=== PATIENT | male | born 1955 | race Caucasian/White ===

== ENCOUNTER 2016-06-23 05:32 | Observation (INO) | payer BC ==
--- OUTSIDE RECORDS SUMMARY | 2016-06-23 05:53 | XMS REPORT | Continuity of Care Document ---
:1955 Demographics Phone Unavailable Preferred Language Unknown Marital Status Unknown Sikhism Affiliation Unknown Race Unknown Ethnic Group Unknown Author Organization [facility] ([facility]) [place] [address] Phone [phone] Care Team Providers Name Role Phone Unavailable Primary Care Provider Unavailable Source Comments This disclosure is being made pursuant to the Care Everywhere program, applicable federal and state laws, and may not contain all informaitonavailable regarding this patient.[facility] ([facility]) Active Allergies and Adverse Reactions Not on File Current Medications Not on file Active Problems Not on file Social History Tobacco Use Types Packs/Day Years Used Date Never Assessed Plan of Care Health Maintenance Due Date Last Done Comments HCV Screening 1955 Hepatitis B Vaccine (1 of 3 - Primary Series) 1955 Tdap Vaccine 1965 Lipid Disorder Screening 1972 Td Vaccine 1972 Colonoscopy 03/07/2004 Prostate Cancer Screening 2004 Zoster Vaccine 2014 Influenza Vaccine: Seasonal (#1) 12/12/2015 Results from Last 3 Months Not on file
[2016-06-23 06:00] LABS: Hemoglobin 16.4 gm/dL (13.5-18.0); Mean Corpuscular Hgb Conc 34.2 g/dl (32-36); Neutrophil # 8.2 K/mm3 (1.3-6.0); Platelet Count 133 K/mm3 (150-450); Red Blood Count 5.65 M/mm3 (4.7-6.0); Red Cell Distribution Width 13.2 % (11.5-14.0); White Blood Count 9.6 K/mm3 (4.0-10.5)
--- NOTE | 2016-06-23 06:03 | ERNOTE ---
Medical Problem HPI - General Chief Complaint: Diabetes Related Problem Time Seen by Provider: 06/23/16 05:41 Source: patient, EMS Exam Limitations: no limitations - Immun/Allergies/Home Medications Immunizations: IMMUNIZATION HX Immunizations Up to Date Yes History of Influenza Vaccine Yes Hx Pneumococcal Vaccination No Allergies/Adverse Reactions: Allergies BRYON Inhibitors Allergy (Severe, Verified 06/23/16 06:51) Swelling of Throat pioglitazone HCl [From Actos] Allergy (Severe, Verified 06/23/16 06:51) Swelling of Throat Home Medications: HOME MEDICATIONS Fluoxetine HCl [Prozac] 20 mg PO DAILY 04/05/15 [Last Taken Unknown] Insulin Aspart [Novolog] 6 units SC TIDWM 04/05/15 [Last Taken Unknown] Insulin Glargine,Hum.rec.anlog [Lantus] 80 units SC DAILY 04/05/15 [Last Taken Unknown] Metoprolol Tartrate [Lopressor] 50 mg PO DAILY 04/05/15 [Last Taken Unknown] Nifedipine [Adalat cc] 60 mg PO DAILY 04/05/15 [Last Taken Unknown] Ramipril 10 mg PO DAILY 04/05/15 [Last Taken Unknown] Nitroglycerin [Nitrostat] 0.4 mg SL Q5MIN PRN #10 btl 06/21/15 [Last Taken Unknown] Furosemide [Lasix] 20 mg PO DAILY #30 tablet 03/09/16 [Last Taken Unknown] Aspirin [Aspirin Enteric Coated] 81 mg PO DAILY 06/23/16 [Last Taken Unknown] Atorvastatin Calcium [Lipitor] 80 mg PO DAILY 06/23/16 [Last Taken Unknown] Clopidogrel Bisulfate [Plavix] 75 mg PO DAILY 06/23/16 [Last Taken Unknown] LORazepam [Ativan] 0.5 mg PO TID PRN 06/23/16 [Last Taken Unknown] Multivitamin [One Daily Essential] 1 each PO DAILY 06/23/16 [Last Taken Unknown] - History of Present History Date (Duration): 06/23/16 Time (Timing): 05:54 Timing: gone now Severity: moderate Modifying Factors - (Improves): Present: medication Modifying Factors - (Worsens): Present: cold therapy - patient 61-year-old male on both long-acting and short-acting insulin was called ambulance early this morning due to confusion. At time of arrival initial Accu-Chek 34 which improved to 110 with one amp D50. Patient still confused and the second Was given prior to arrival emergency room. Patient with gradual improvement of mental status especially after second amp D50 given. Patient alert oriented 3 in no apparent distress at time of arrival in emergency room. Interestingly patient's hypothermic by both ear and rectal thermometer readings at time of arrival. He denies any problems with heat in the house or prolonged exposure to the elements last night or early this morning. Patient denies recent use of alcohol or any illicit drugs. Review of Systems - Review of Systems Constitutional: Absent: recent illness, fever, chills EYE: Present: no symptoms reported ENT: Present: no symptoms reported Respiratory: Present: no symptoms reported Cardiology: Present: no symptoms reported Gastrointestinal/Abdominal: Present: no symptoms reported Genitourinary: Present: no symptoms reported Musculoskeletal: Present: no symptoms reported Skin: Present: no symptoms reported Neurological: Present: other - patient with marked confusion at time of EMS arrival. Patient back to baseline at time of arrival in emergency room. Endocrine: Present: no symptoms reported Hematologic/Lymphatic: Present: no symptoms reported Psych: Present: no symptoms reported - Patient's Past Medical History Patient History - Medical: Anxiety, Diabetes Type 2, Kidney stone, Other - patient with previous history of TIAs and CVA with no significant residuals. Patient on both Plavix and baby aspirin currently. Patient denies missing supper but states that he did miss lunch. Patient History - Cardiac/Respiratory: CVA/Stroke, TIA Patient History - Cancer: Prostate Patient History - Surgical Procedures: Colonoscopy, EGD, T & A, Other Patient History - Other: AIDS - Family History Mother Family History - Medical: Other Family History - Cardiac/Respiratory: No pertinent hx Father Family History - Medical: , Diabetes Type 2 Insulin Dependent, Renal Failure, Other Family History - Cardiac/Respiratory: TIA - Social History Living Situations: spouse Abuse History: No History of abuse Psych History: Hx of Depression Smoking Status: Never smoker Have you smoked in the past 12 months: No Do you dip or chew tobacco: Yes Patient requests Smoking Cessation Consult: No Initiate information on Smoking Cessation: No Alcohol Use: occasionally Drug Use: none - Immunizations Immunizations Up to Date: Yes Hx Pneumococcal Vaccination: No History of Influenza Vaccine: Yes Physical Exam - Physical Exam General Appearance: Present: wd/wn, alert, no apparent distress, other - above general appearance at time of arrival in emergency room. Eye Exam: Normal inspection: bilateral, PERRL: bilateral, EOMI: bilateral Ears, Nose, Throat: Present: normal ENT inspection, hearing grossly normal, normal pharynx Neck: Present: normal inspection, nontender Respiratory: Present: no respiratory distress, normal breath sounds, no accessory muscle use, chest nontender Cardiovascular/Chest: Present: regular rate, rhythm, no murmur, normal peripheral pulses Peripheral Pulses: N=norm/S=strong/W=weak/B=bound/A=absent: Carotid (R): Normal , Carotid (L): Normal, Dorsalis-pedis (R): Normal, Dorsalis-pedis (L): Normal Gastrointestinal/Abdominal: Present: normal bowel sounds, nontender, nondistended, soft, no organomegaly Rectal Exam: Present: deferred Back Exam: Present: normal inspection, normal range of motion, no CVA tenderness , no vertebral tenderness Extremity Exam: Present: normal inspection, non-tender, no edema, normal range of motion Neurological Exam: Present: alert, oriented, normal mood/affect, no motor/ sensory deficits, supervising producer II-XII nml as tested DTR: N=norm/NB=norm/brisk/A=abs/DD=dull/dimin/HC=hyperactive: Bicep (R): Normal - all reflexes below 2 over 4 bilaterally, Bicep (L): Normal, Tricep (R): Normal , Tricep (L): Normal, Knee (R): Normal, Knee (L): Normal Skin Exam: Present: normal color, warm/dry, other - skin feels warm and has normal pink hue despite low body core temperature Lymphatic Exam: Present: no adenopathy ED Progress - Date and Time Seen: Date and Time: 06/23/16 06:01 Vital signs show patient hypothermic with temperature below 93F. Body hugger Placed to increase her core temperature. Will perform blood work, CT and EKG to rule out coexisting problems (CVA, intracranial hemorr, nonSTEMI). Patient neurologically stable with Jamir Coma Scale 15 and NIH stroke scale 0. 06/23/16 06:09 Sinus rhythm with 1st degree AV block w TN interval 262, complete LBBB, ant. hemiblock, single PVC, with no visible Herndon waves. Above combination my read and computer read. Labs sent, CT pending, bear hugger in place with additional warm blankets. All and 06/23/16 06:17 Temp increasing gradually as outlined in nurse notes. Will add heated blankets and provide 1 L warmed NS. Patient hemodynamically and neurologically stable. 06/23/16 07:24 Laboratory Results - last 24 hr 06/23/16 06/23/16 06/23/16 05:50 05:50 05:50 WBC 9.6 RBC 5.65 Hgb 16.4 Hct 48.0 MCV 85.0 MCH 29.0 MCHC 34.2 RDW 13.2 Plt Count 133 L MPV 13.0 H Immature Gran % (Auto) 0.20 Immature Gran # (Auto) 0.02 Neutrophils % 85.0 H Lymphocytes % 8.2 L Monocytes % 5.9 Eosinophils % 0.2 Basophils % 0.5 Nucleated RBC % 0.0 Neutrophils # 8.2 H Lymphocytes # 0.8 L Monocytes # 0.6 Eosinophils # 0.0 Absolute Basophils 0.1 pCO2 pO2 HCO3 Total CO2 Base Excess ABG pH ABG O2 Sat (Measured) Sodium 142 Plasma Sodium 144 H Potassium 4.2 Chloride 102 Carbon Dioxide 31.4 Anion Gap 12.8 BUN 20 Creatinine 1.05 Est GFR (Non-Af Amer) 76 D BUN/Creatinine Ratio 19.0 Random Glucose 213 H Lactic Acid, Venous 2.7 H* Calcium 9.3 Calcium Adj for Albumin 8.7 Total Bilirubin 0.6 AST 29 ALT 44 Alkaline Phosphatase 83 Creatine Kinase 254 CK-MB (CK-2) 5.9 CK-MB (CK-2) Rel Index 2.3 Troponin I 0.039 Total Protein 7.4 Albumin 4.3 Urine Color Urine Appearance Urine pH Ur Specific [place] Urine Protein Urine Glucose (UA) Urine Ketones Urine Blood Urine Nitrate Urine Bilirubin Prot Sulfosalicylic Acd Urine Urobilinogen Ur Leukocyte Esterase Urine RBC Urine WBC Ur Epithelial Cells Urine Bacteria Urine Culture Comments 06/23/16 06/23/16 06:00 06:13 WBC RBC Hgb Hct MCV MCH MCHC RDW Plt Count MPV Immature Gran % (Auto) Immature Gran # (Auto) Neutrophils % Lymphocytes % Monocytes % Eosinophils % Basophils % Nucleated RBC % Neutrophils # Lymphocytes # Monocytes # Eosinophils # Absolute Basophils pCO2 40.4 pO2 86.5 HCO3 23.4 Total CO2 24.6 H Base Excess -1.6 ABG pH 7.38 ABG O2 Sat (Measured) 96.4 Sodium Plasma Sodium Potassium Chloride Carbon Dioxide Anion Gap BUN Creatinine Est GFR (Non-Af Amer) BUN/Creatinine Ratio Random Glucose Lactic Acid, Venous Calcium Calcium Adj for Albumin Total Bilirubin AST ALT Alkaline Phosphatase Creatine Kinase CK-MB (CK-2) CK-MB (CK-2) Rel Index Troponin I Total Protein Albumin Urine Color Yellow Urine Appearance Clear Urine pH 6.0 Ur Specific [place] 1.025 Urine Protein 15 H Urine Glucose (UA) >=1000 H Urine Ketones Negative Urine Blood 25 H Urine Nitrate Negative Urine Bilirubin Negative Prot Sulfosalicylic Acd Negative Urine Urobilinogen Normal Ur Leukocyte Esterase Negative Urine RBC 0-5 Urine WBC None seen Ur Epithelial Cells 0-5 Urine Bacteria None seen Urine Culture Comments No culture indicated CT head: old lacunar infarcts in cerebellum. No intracranial hemorrhage noted. Above formal read. Will admit patient for observation for hypoglycemia and hypothermia.. 06/23/16 07:28 In - Results and Orders Patient's Lab Results:: I have reviewed the patient's lab results. - Vital Signs Patient's Vital Signs:: I have reviewed the patient's vital signs. Vital Signs: Vital Signs 06/23/16 05:37 Pulse Rate 87 Respiratory 18 Rate O2 Sat by Pulse 98 Oximetry - Progress/Reassessment Chief Complaint: Diabetes Related Problem Departure - Departure Clinical Impression: Hypoglycemia, Hypothermia Disposition: [facility] Condition: Fair
[2016-06-23] MEDS ORDERED: NORMAL SALINE 1,000 ML IV PRN (06:17)
[2016-06-23 06:19] LABS: Troponin I 0.039 ng/ml (0.00-0.10)
[2016-06-23 06:22] LABS: Urine Bilirubin Negative (NEGATIVE); Urine Blood 25 /ul (NEGATIVE); Urine Ketone Negative (NEGATIVE); Urine Nitrite Negative (NEGATIVE); Urine Protein 15 mg/dL (NEGATIVE); Urine Specific Gravity 1.025 SP.GR. (1.005-1.030); Urine Urobilinogen Normal (NORMAL)
[2016-06-23 06:24] LABS: Albumin * 4.3 gm/dl (3.4-5.0); Anion Gap 12.8 mmol/L (6.8-13.8); Bilirubin, Total 0.6 mg/dL (0.0-1.1); CKMB 5.9 ng/mL (0.0-9.0); Ca. Corrected For Albumin 8.7 mg/dL (8.4-10.2); Calcium * 9.3 mg/dL (7.9-10.9); Carbon Dioxide 31.4 mmol/L (24-32.6); Potassium 4.2 mmol/L (3.4-4.6); Total Protein 7.4 gm/dL (6.2-8.2)
[2016-06-23 06:29] LABS: Urine Appearance Clear; Urine Bacteria None Seen; Urine Color Yellow; Urine RBC 0-5 /hpf (0-5); Urine WBC None Seen /hpf (0-5)
--- OUTSIDE RECORDS SUMMARY | 2016-06-23 07:55 | XMS REPORT | Continuity of Care Document ---
:1955 Demographics Phone Unavailable Preferred Language Unknown Marital Status Unknown Congregational Affiliation Unknown Race Unknown Ethnic Group Unknown Author Organization [facility] ([facility]) [place] [address] Phone [phone] Care Team Providers Name Role Phone Unavailable Primary Care Provider Unavailable Source Comments This disclosure is being made pursuant to the Care Everywhere program, applicable federal and state laws, and may not contain all informaitonavailable regarding this patient.[facility] ([facility]) Active Allergies and Adverse Reactions Not on [...]
[2016-06-23 08:28] VITALS: BP 122/77
--- NOTE | 2016-06-23 14:13 | HP ---
Chief Complaint - Chief Complaint Date of Service: 06/23/16 Time of Service: 12:00 Chief Complaint: Confusion History of Present Illness: Usamn is a 61 yo male that awoke with confusion this AM. EMS was called by his . Sugar first checked at 30 which improved to 100 with D50. He was evaluted in the ER but was found to be persistently hypothermic. He had a head CT which showed no acute changes. Blood sugars remained above 100, but temperature remained below 36C. He reports that he likes to keep his bedroom cold and that he feels normal. Because he takes long and short acting insulin ER requested he be admitted for observation to make sure his temperature improves and his blood sugars do not worsen. - Patient's Past Medical History Patient History - Medical: Anxiety, Diabetes Type 2 Insulin Dependent, Kidney stone Patient History - Cardiac/Respiratory: CVA/Stroke, TIA Patient History - Cancer: Prostate Patient History - Surgical Procedures: Colonoscopy, EGD, T & A, Other Patient History - Other: AIDS - Family History Mother Family History - Medical: Other Family History - Cardiac/Respiratory: No pertinent hx Father Family History - Medical: , Diabetes Type 2 Insulin Dependent, Renal Failure, Other Family History - Cardiac/Respiratory: TIA - Social History Living Situations: spouse Abuse History: No History of abuse Psych History: Hx of Depression Smoking Status: Never smoker Have you smoked in the past 12 months: No Do you dip or chew tobacco: Yes Patient requests Smoking Cessation Consult: No Initiate information on Smoking Cessation: No Alcohol Use: occasionally Drug Use: none - Immunizations Immunizations Up to Date: Yes Hx Pneumococcal Vaccination: No History of Influenza Vaccine: Yes Review Of Systems (GEN) - Review of Systems Generalized/Overall Review: Present: Weakness, Fatigue. Absent: Chills, Fever, Malaise, Diaphoresis EENTM: Present: No Symptoms Reported Respiratory: Present: No Symptoms Reported Cardiac: Present: No Symptoms Reported Abdominal: Present: No Symptoms Reported Genitourinary: Present: No Symptoms Reported Musculoskeletal: Present: No Symptoms Reported Neurological: Present: Other - Confusion which is now resolved Skin: Present: No Symptoms Reported Allergies/Adverse Reactions: Allergies Allergy/AdvReac Type Severity Reaction Status Date / Time BRYON Inhibitors Allergy Severe Swelling Verified 06/23/16 06:51 of Throat pioglitazone HCl [From Actos] Allergy Severe Swelling Verified 06/23/16 06:51 of Throat Home Medications: HOME MEDICATIONS Fluoxetine HCl [Prozac] 20 mg PO DAILY 04/05/15 [Last Taken Unknown] Insulin Aspart [Novolog] 6 units SC TIDWM 04/05/15 [Last Taken Unknown] Insulin Glargine,Hum.rec.anlog [Lantus] 80 units SC DAILY 04/05/15 [Last Taken Unknown] Metoprolol Tartrate [Lopressor] 50 mg PO DAILY 04/05/15 [Last Taken Unknown] Nifedipine [Adalat cc] 60 mg PO DAILY 04/05/15 [Last Taken Unknown] Ramipril 10 mg PO DAILY 04/05/15 [Last Taken Unknown] Nitroglycerin [Nitrostat] 0.4 mg SL Q5MIN PRN #10 btl 06/21/15 [Last Taken Unknown] Furosemide [Lasix] 20 mg PO DAILY #30 tablet 03/09/16 [Last Taken Unknown] Aspirin [Aspirin Enteric Coated] 81 mg PO DAILY 06/23/16 [Last Taken Unknown] Atorvastatin Calcium [Lipitor] 80 mg PO DAILY 06/23/16 [Last Taken Unknown] Clopidogrel Bisulfate [Plavix] 75 mg PO DAILY 06/23/16 [Last Taken Unknown] LORazepam [Ativan] 0.5 mg PO TID PRN 06/23/16 [Last Taken Unknown] Multivitamin [One Daily Essential] 1 each PO DAILY 06/23/16 [Last Taken Unknown] Exam - Exam Vital Signs: Vital Signs - Last Taken Temp 36.6 C 06/23/16 08:22 Pulse 76 06/23/16 08:22 Resp 20 06/23/16 08:22 BP 122/77 06/23/16 08:22 Pulse Ox 100 06/23/16 08:22 Constitutional: Present: Alert, Oriented x3, Cooperative, No distress ENT Exam: Present: hearing grossly normal Eye Exam: bilateral eye: normal inspection Respiratory: Present: chest non-tender, lungs clear, normal breath sounds Cardiovascular/Chest: Present: regular rate, rhythm, no murmur Abdomen: Present: Normal bowel sounds, soft, nontender, nondistended, no rebound tenderness, no hepatospenomegaly Extremity: Present: normal inspection Skin Exam: Present: normal color, warm/dry, no cyanosis Neurologic: Present: country printer II-XII nml as tested, no motor/sensory deficits, alert , normal mood/affect, oriented x 3 Appearance: Present: appropriate appearance, appropriate insight Eye contact: Present: cooperative, good eye contact, normal speech Thoughts: Present: normal thought pattern, no apparent hallucination Diagnostic Studies: Laboratory Results WBC 9.6 K/mm3 (4.0-10.5) 06/23/16 05:50 RBC 5.65 M/mm3 (4.7-6.0) 06/23/16 05:50 Hgb 16.4 gm/dL (13.5-18.0) 06/23/16 05:50 Hct 48.0 % (42.0-52.0) 06/23/16 05:50 MCV 85.0 fl (78-100) 06/23/16 05:50 MCH 29.0 pg (27-31) 06/23/16 05:50 MCHC 34.2 g/dl (32-36) 06/23/16 05:50 RDW 13.2 % (11.5-14.0) 06/23/16 05:50 Plt Count 133 K/mm3 (150-450) L 06/23/16 05:50 MPV 13.0 fl (6.0-9.5) H 06/23/16 05:50 Immature Gran % (Auto) 0.20 % (0.001-0.429) 06/23/16 05:50 Immature Gran # (Auto) 0.02 K/mm3 (0.000-0.0310) 06/23/16 05:50 Neutrophils % 85.0 % (42-75.0) H 06/23/16 05:50 Lymphocytes % 8.2 % (20-51) L 06/23/16 05:50 Monocytes % 5.9 % (0.0-9) 06/23/16 05:50 Eosinophils % 0.2 % (0.0-3.0) 06/23/16 05:50 Basophils % 0.5 % (0.0-1.0) 06/23/16 05:50 Nucleated RBC % 0.0 k/mm3 (0-1) 06/23/16 05:50 Neutrophils # 8.2 K/mm3 (1.3-6.0) H 06/23/16 05:50 Lymphocytes # 0.8 k/mm3 (1.5-3.5) L 06/23/16 05:50 Monocytes # 0.6 k/mm3 (0.0-1.0) 06/23/16 05:50 Eosinophils # 0.0 k/mm3 (0.0-0.7) 06/23/16 05:50 Absolute Basophils 0.1 k/mm3 (0.0-0.1) 06/23/16 05:50 pCO2 40.4 mmHg (35.0-48.0) 06/23/16 06:00 pO2 86.5 mmHg (83.0-108.0) 06/23/16 06:00 HCO3 23.4 mmol/L (21.0-28.0) 06/23/16 06:00 Total CO2 24.6 mmol/L (19.0-24.0) H 06/23/16 06:00 Base Excess -1.6 mmol/L (-2.0-3.0) 06/23/16 06:00 ABG pH 7.38 (7.35-7.45) 06/23/16 06:00 ABG O2 Sat (Measured) 96.4 % (94.0-98.0) 06/23/16 06:00 Sodium 142 mmol/L (132-142) 06/23/16 05:50 Plasma Sodium 144 mmol/L (130-142) H 06/23/16 05:50 Potassium 4.2 mmol/L (3.4-4.6) 06/23/16 05:50 Chloride 102 mmol/L (97-106) 06/23/16 05:50 Carbon Dioxide 31.4 mmol/L (24-32.6) 06/23/16 05:50 Anion Gap 12.8 mmol/L (6.8-13.8) 06/23/16 05:50 BUN 20 mg/dL (6-23) 06/23/16 05:50 Creatinine 1.05 mg/dL (0.4-1.4) 06/23/16 05:50 Est GFR (Non-Af Amer) 76 mL/min (60-130) D 06/23/16 05:50 BUN/Creatinine Ratio 19.0 (9.0-21.6) 06/23/16 05:50 Random Glucose 213 mg/dL (70-110) H 06/23/16 05:50 Lactic Acid, Venous 1.6 mmol/L (0.4-2.0) 06/23/16 09:10 Calcium 9.3 mg/dL (7.9-10.9) 06/23/16 05:50 Calcium Adj for Albumin 8.7 mg/dL (8.4-10.2) 06/23/16 05:50 Total Bilirubin 0.6 mg/dL (0.0-1.1) 06/23/16 05:50 AST 29 U/L (0-48) 06/23/16 05:50 ALT 44 U/L (19-67) 06/23/16 05:50 Alkaline Phosphatase 83 U/L (50-170) 06/23/16 05:50 Creatine Kinase 254 U/L (0-259) 06/23/16 05:50 CK-MB (CK-2) 5.9 ng/mL (0.0-9.0) 06/23/16 05:50 CK-MB (CK-2) Rel Index 2.3 (0.0-3.6) 06/23/16 05:50 Troponin I 0.039 ng/ml (0.00-0.10) 06/23/16 05:50 Total Protein 7.4 gm/dL (6.2-8.2) 06/23/16 05:50 Albumin 4.3 gm/dl (3.4-5.0) 06/23/16 05:50 Urine Color Yellow 06/23/16 06:13 Urine Appearance Clear 06/23/16 06:13 Urine pH 6.0 pH (5.0-7.0) 06/23/16 06:13 Ur Specific [place] 1.025 SP.GR. (1.005-1.030) 06/23/16 06:13 Urine Protein 15 mg/dL (NEGATIVE) H 06/23/16 06:13 Urine Glucose (UA) >=1000 mg/dL (NEGATIVE) H 06/23/16 06:13 Urine Ketones Negative mg/dL (NEGATIVE) 06/23/16 06:13 Urine Blood 25 /ul (NEGATIVE) H 06/23/16 06:13 Urine Nitrate Negative (NEGATIVE) 06/23/16 06:13 Urine Bilirubin Negative mg/dl (NEGATIVE) 06/23/16 06:13 Prot Sulfosalicylic Acd Negative mg/dL (0) 06/23/16 06:13 Urine Urobilinogen Normal EU/dl (NORMAL) 06/23/16 06:13 Ur Leukocyte Esterase Negative /ul (NEGATIVE) 06/23/16 06:13 Urine RBC 0-5 /hpf (0-5) 06/23/16 06:13 Urine WBC None seen /hpf (0-5) 06/23/16 06:13 Ur Epithelial Cells 0-5 /hpf (0-5) 06/23/16 06:13 Urine Bacteria None seen (NONE) 06/23/16 06:13 Urine Culture Comments No culture indicated 06/23/16 06:13 Assessment/Plan - Assessment/Plan (1) Hypoglycemia Assessment: Usman is a 61 yo male that had an episode of confusion this AM due to hypoglycemia of 30. This was corrected with an Amp of D50 and has remained normal since. He is an insulin dependent diabetic and takes both short and long acting insulin. He reports that he keeps the bottles near each other in the fridge and he thinks that it is possible he took his short acting insulin last night instead of his lantus. Will monitor blood sugars through the day, but if remains stable will plan to discharge later this afternoon. Problem: Acute (2) Hypothermia Assessment: Hypothermia in the ER, this has now resolved. He reports keeping his bedroom cold and feels fine now that his blood sugars are back up. Problem: Acute
--- NOTE | 2016-06-23 15:07 | DS ---
(1) Hypoglycemia Diagnosis(s): Usman is a 61 yo male that was admitted for hypoglycemia of 30 with plans to monitor in observation for several hours to make sure these remain stable. It was discovered that he had likely taken his short acting insulin instead of his long acting Lantus at night which caused AM hypoglycemia and confusion. Blood sugars remained normal and temperature returned to normal and remained there. He will be discharged to home with no further problems with his blood sugars. He was educated to silver/label his different insulins so that he cannot confuse them as they are extremely different. Just to be on the safe side we will have him go ahead and decrease his bedtime lantus as well. He may gradually increase up to where he was if his blood sugars are running high. Problem: Resolved (2) Hypothermia Problem: Resolved Procedures Performed: none Discharge Disposition: Home self care Disposition: Home self-care Condition: Good Discharge Activity: Activity as tolerated Discharge Diet: Consistent carbs Referrals: DOC,OUTSIDE [Non Staff Physicians] - One Week Problem Oriented Discharge Instructions to Patient/Family: Hypoglycemia, Easy- to-Read Additional Patient Instructions (free text): Decrease Lantus to 70 units at bedtime for several days to make sure there are no further hypoglycemic episodes, if blood sugars are running high during the day, may gradually increase Lantus to 80 units. Clearly silver Lantus and Novolog bottles so that they do not get mixed up. Complete Home Medications List: Complete Home Medication List: Fluoxetine HCl [Prozac] 20 mg PO DAILY 04/05/15 Insulin Aspart [Novolog] 6 units SC TIDWM 04/05/15 Insulin Glargine,Hum.rec.anlog [Lantus] 80 units SC DAILY 04/05/15 Metoprolol Tartrate [Lopressor] 50 mg PO DAILY 04/05/15 Nifedipine [Adalat cc] 60 mg PO DAILY 04/05/15 Ramipril 10 mg PO DAILY 04/05/15 Nitroglycerin [Nitrostat] 0.4 mg SL Q5MIN PRN #10 btl 06/21/15 Furosemide [Lasix] 20 mg PO DAILY #30 tablet 03/09/16 Aspirin [Aspirin Enteric Coated] 81 mg PO DAILY 06/23/16 Atorvastatin Calcium [Lipitor] 80 mg PO DAILY 06/23/16 Clopidogrel Bisulfate [Plavix] 75 mg PO DAILY 06/23/16 LORazepam [Ativan] 0.5 mg PO TID PRN 06/23/16 Multivitamin [One Daily Essential] 1 each PO DAILY 06/23/16
== END 2016-06-23 16:16 | disposition home or self-care (01) ==
LOC: ER 05:32 → MS 07:46
PROVIDERS: ADMIT Family Medicine; ATTEND Family Medicine
DX: E11.649 Type 2 diabetes mellitus with hypoglycemia without coma (principal); Z79.4 Long term (current) use of insulin; T68.XXXA Hypothermia, initial encounter
CPT/HCPCS: 36415; 36600; 70450; 80053; 81001; 82550; 82553; 82803; 83605; 84484; 85025; 93005; 99284; G0378

== ENCOUNTER 2018-10-31 10:10 | Inpatient (IN) ==
--- NOTE | 2018-10-31 10:36 | ERNOTE ---
Neuro HPI ER Record Presenting Symptoms: confusion Time Seen by Provider: 10/31/18 10:16 Source: patient Exam Limitations: no limitations, clinical condition Immunizations: IMMUNIZATION HX Immunizations Up to Date Yes History of Influenza Vaccine More Information Required Hx Pneumococcal Vaccination More Information Required Allergies/Adverse Reactions: Allergies Allergy/AdvReac Type Severity Reaction Status Date / Time BRYON Inhibitors Allergy Severe Swelling Verified 10/31/18 10:18 of Throat pioglitazone HCl [From Actos] Allergy Severe Swelling Verified 10/31/18 10:18 of Throat Home Medications: HOME MEDICATIONS Atorvastatin Calcium 80 mg PO DAILY 07/02/17 [Last Taken Unknown] Clopidogrel Bisulfate [Plavix] 75 mg PO DAILY 07/02/17 [Last Taken Unknown] Insulin Aspart [Novolog] 6 - 8 units SC AC 07/02/17 [Last Taken Unknown] Insulin Glargine,Hum.rec.anlog [Lantus] 40 units SC HS 07/02/17 [Last Taken Unknown] LORazepam [Ativan] 0.5 mg PO TID PRN 07/02/17 [Last Taken Unknown] Metoprolol Tartrate [Lopressor] 12.5 mg PO BID 07/02/17 [Last Taken Unknown] Multivitamin [One Daily Multivitamin] 1 ea PO DAILY 07/02/17 [Last Taken Unknown] Aspirin [Adult Aspirin] 81 mg PO DAILY 04/06/18 [Last Taken Unknown] FLUoxetine HCL [Fluoxetine HCl] 20 mg PO DAILY 04/06/18 [Last Taken Unknown] Folic Acid 1 mg PO DAILY 04/06/18 [Last Taken Unknown] Nitroglycerin [Nitrostat] 0.4 mg SL Q5MIN PRN 04/06/18 [Last Taken Unknown] - History of Present Illness Narrative: EMS reports that patient [place] stating he might have a TIA or stroke. Patient had slurred speech initially, then seemed to be more clear, on the way to the hospital patient seem to get more confused, was unable to name people or events that he knew. On arrival the the ER patient can't state why he is he, denies any pain He told the EMT that he stopped his HTN medication and blood thinners about two weeks ago Date (Duration): 10/31/18 Time (Timing): 08:45 Review of Systems - Review of Systems Constitutional: Absent: recent illness, fever EYE: Absent: vision changes ENT: Absent: nose congestion, sore throat Respiratory: Absent: shortness of breath Cardiology: Absent: chest pain Gastrointestinal/Abdominal: Absent: nausea, abdominal pain Genitourinary: Present: no symptoms reported Musculoskeletal: Absent: back pain Neurological: Present: See HPI. Absent: headache Medical History (Updated 10/31/18 @ 16:12 by Daily Owen MD) CVA (cerebral vascular accident) Anxiety Onset Date: Unknown CHF (congestive heart failure) Calculus of kidney Onset Date: 1984 around [id number] Cardiomegaly Onset Date: Unknown Combined hyperlipidemia associated with type 2 diabetes mellitus Diabetes Essential familial hyperlipidemia GERD (gastroesophageal reflux disease) Gout Onset Date: 1994 Hernia, inguinal Onset Date: 2008 right direct Hypertension Personal history of colonic polyps Onset Date: Unknown Prostadynia Prostate cancer Removed prostate TIA (transient ischemic attack) Surgical History: Surgical History (Updated 12/26/17 @ 18:15 by Cristal Mohan) History of colonoscopy Onset Date: 06/10/13 with biopsy- [facility]-right colon polyp, lt colon. [place], [place]- tubulovillous adenoma.- 04/23/08, 06/10/13 History of esophagogastroduodenoscopy (EGD) Onset Date: 06/10/13 [place]-mild chronic gastritis, H.pylor negative. History of inguinal hernia repair Onset Date: 12/21/08 tinguely-rt modified bassini and soft mesh History of prostate biopsy Onset Date: 01/06/[address] Swenson History of tonsillectomy and adenoidectomy Hx of tonsillectomy LEFT ARM SURGERY "PINCHED NERVE FIXED" Family History: Family History (Updated 12/26/17 @ 18:04 by Cristal Mohan) Father , 76 Kidney failure Cancer prostate, leukemia Diabetes Diabetic neuropathy Mother Hypoglycemia Hypertension Social History: Preferred Language Croatian Smoking Status Never smoker Abuse History No History of abuse Psych History Hx of Anxiety,Hx of Depression Alcohol Use none Drug Use none (Last Updated 12/26/17 @ 18:02 by Cristal Mohan) No Social History Section defined Physical Exam - Physical Exam General Appearance: Present: wd/wn, alert, no apparent distress Head Exam: Present: normal inspection, no evidence of injury Eye Exam: Normal inspection: bilateral, PERRL: bilateral, EOMI: bilateral Ears, Nose, Throat: Present: normal ENT inspection Neck: Present: normal inspection Respiratory: Present: no respiratory distress, normal breath sounds, no accessory muscle use, chest nontender, lungs clear Cardiovascular/Chest: Present: regular rate, rhythm, no murmur Gastrointestinal/Abdominal: Present: nontender, nondistended, soft Extremity Exam: Present: normal inspection Neurological Exam: Present: alert, no motor/sensory deficits, disoriented to time - knows is saturday, can't name the year, disoriented to place - knows it is a hospital, can't state the town, disoriented to situation. Absent: disoriented to person Skin Exam: Present: normal color, warm/dry Jamir Coma Scale - Assess Eye Opening: Spontaneous Motor: Obeys Commands Verbal: Oriented - Total Coma Scale Total: 15 Initial Stroke Assessment - NIH Stroke Scale Level of Consciousness: Alert LOC Questions (Year and Age): Answers one correctly LOC Commands (open/close eyes/fist): Performs both correctly Lateral Gaze Paresis: None Visual Field Loss: No visual loss Facial Palsy: Normal movement Right Arm Motor (10 sec hold): No drift Left Arm Motor (10 sec hold): No drift Right Leg Motor (5 sec hold): No drift Left Leg Motor (5 sec hold): No drift Limb Ataxia (finger/nose heel/goodman): Absent Sensory Loss (pinprick arms/legs/face): No sensory loss Language Aphasia (description/naming/reading): Mild, yet understandable Dysarthria (speech clarity): Normal articulation Progress - Results and Orders Patient's Lab Results:: I have reviewed the patient's lab results. - Vital Signs Patient's Vital Signs:: I have reviewed the patient's vital signs. Vital Signs: Vital Signs 10/31/18 10:14 10/31/18 10:19 Temperature 36.8 C Pulse Rate 82 79 Respiratory Rate 11 L Blood Pressure 148/97 H O2 Sat by Pulse Oximetry 99 - EKG EKG #1 EKG: NSR - ? , LBBB, other - no change from prior EKG read: Interp. by me - CT/Ultrasound CT/Ultrasound Narrative: CT head: 1. No acute intracranial hemorrhage or mass effect. 2. Additional comments as above. MRI brain: IMPRESSION: 1. 2 small separate areas of potential acute/subacute infarcts in the subcortical white matter of the right insular cortex, and within the right centrum semiovale, likely along the right middle cerebral artery territory. There is no significant edema/mass effect or definite signs of acute hemorrhage within the areas of infarcts. 2. Likely an old infarct in the right cerebellar hemisphere, with T1 linear bright signal as discussed above most likely represents laminar necrosis, but interval development of petechial hemorrhage since head CT from earlier today would be difficult to exclude. Correlate clinically for any interval worsening in symptoms since the head CT from earlier today. Repeat noncontrast head CT could be helpful for added reassurance. 3. Additional comments are as above. - Progress/Reassessment Progress Note-Subjective: 10/31/18 12:50 discussed test results with patient patient is alert, talking fluently and using correct words for the most part but still has difficulty finding some words or expressing his thoughts. 10/31/18 12:55 will try to get MRI 10/31/18 14:[address] Goldberg, patient has small acute/subacute strokes, see report 10/31/18 14:55 updated patient on MRI results, exam unchanged 10/31/18 14:59 call to [facility] 10/31/18 15:16 discussed with stroke team ( Dr Hallman) during prior admission patient had complete work up including echo, MRI,carotid doppler doesn't need acute intervention or transfer to [facility], might benefit from ROMULO, should follow up with neurology as outpatient 10/31/18 15:[address] Hallman,patient didn't had event monitor, might benefit from holter/event montitor 10/31/18 15:55 discussed with tommy Serna to admit patient for acute stroke, restart his prior medications, monitor blood pressure and glucose pre [employer]er [employer] patient meets inpatient criteria Departure Clinical Impression: Diabetes mellitus type 2 in nonobese, Acute alteration in mental status CVA (cerebral vascular accident) Qualifiers: CVA mechanism: unspecified Qualified Code(s): I63.9 - Cerebral infarction, unspecified Hypertension Qualifiers: Hypertension type: unspecified Qualified Code(s): I10 - Essential (primary) hypertension - Departure Disposition: Still a patient Condition: Stable
[2018-10-31 10:38] LABS: Hematocrit 47.7 % (42.0-52.0); Hemoglobin 16.4 gm/dL (13.5-18.0); Mean Cell Volume 86.1 fl (78-100); Mean Corpuscular Hemoglobin 29.6 pg (27-31); Mean Corpuscular Hgb Conc 34.4 g/dl (32-36); Mean Platelet Volume 13.1 fl (8-11.3); Neutrophil # 4.6 K/mm3 (1.3-6.0); Neutrophil % 67.3 % (42-75.0); Platelet Count 104 K/mm3 (150-450); Red Blood Count 5.54 M/mm3 (4.7-6.0); Red Cell Distribution Width 12.8 % (11.5-14.0); White Blood Count 6.8 K/mm3 (4.0-10.5)
[2018-10-31 10:48] LABS: Prothrombin Time (Patient) 10.8 Seconds (9.1-10.7)
[2018-10-31 10:50] LABS: Albumin * 3.7 gm/dl (3.4-5.0); Anion Gap 9.9 mmol/L (6.8-13.8); BUN/Creatinine Ratio 14.8 (9.0-21.6); Bilirubin, Total 1.2 mg/dL (0.0-1.1); Ca. Corrected For Albumin 8.8 mg/dL (8.4-10.2); Calcium * 8.9 mg/dL (7.9-10.9); Potassium 3.9 mmol/L (3.4-4.6); Total Protein 6.6 gm/dL (6.2-8.2)
[2018-10-31 10:51] LABS: INR 1.09 INR (0.92-1.08); Partial Thrombolplastin Time 31.3 Seconds (24-32)
[2018-10-31] MEDS ORDERED: LORazepam 2 MG/ML DISP.SYRIN IV ONE (13:01)
[2018-10-31] MEDS ORDERED: METOPROLOL TARTRATE 25 MG TABLET PO ONE (14:58)
[2018-10-31] MEDS ORDERED: CLOPIDOGREL BISULFATE 75 MG TABLET PO ONE (14:58)
[2018-10-31] MEDS ORDERED: ROSUVASTATIN CALCIUM 20 MG TABLET PO SCH (19:45)
[2018-10-31] MEDS ORDERED: LORazepam 0.5 MG TABLET PO PRN (20:02)
--- NOTE | 2018-10-31 20:08 | HP ---
Chief Complaint - Chief Complaint Date of Service: 10/31/18 Time of Service: 19:33 Chief Complaint: difficulty speaking History of Present Illness: Patient with recent CVA about a month ago developed numbness and difficulty speaking yesterday or today. In the ED, MRI showed two new areas of acute/subacute infarcts in the right insular cortex. He reports not taking his prescribed medications lately. Of note, he is also going through a divorce. He declines other symptoms. He states he used to drink regularly, and stated "you don't want to know" when asked the amount he drank daily. He is unable to say exactly when he stopped drinking, but that it was sometime around a week ago. He uses smokeless tobacco. He has difficulty answering questions on exam, but reports his numbness has resolved. He was unable to tell me where the numbness was. He denies having memory difficulty, but is unable to explain his symptoms. Medical History (Updated 10/31/18 @ 16:58 by Daily Owen MD) CVA (cerebral vascular accident) Hypertension Anxiety Onset Date: Unknown CHF (congestive heart failure) Calculus of kidney Onset Date: 1984 around [id number] Cardiomegaly Onset Date: Unknown Combined hyperlipidemia associated with type 2 diabetes mellitus Diabetes Essential familial hyperlipidemia GERD (gastroesophageal reflux disease) Gout Onset Date: 1994 Hernia, inguinal Onset Date: 2008 right direct Personal history of colonic polyps Onset Date: Unknown Prostadynia Prostate cancer Removed prostate TIA (transient ischemic attack) Surgical History: Surgical History (Updated 12/26/17 @ 18:15 by Cristal Mohan) History of colonoscopy Onset Date: 06/10/13 with biopsy- [place]-right colon polyp, lt colon. '14 [place], [place]- tubulovillous adenoma.- 04/23/08, 06/10/13 History of esophagogastroduodenoscopy (EGD) Onset Date: 06/10/13 [place], [place]-mild chronic gastritis, H.pylor negative. History of inguinal hernia repair Onset Date: 12/21/08 tinguely-rt modified bassini and soft mesh History of prostate biopsy Onset Date: 01/06/[address] Swenson History of tonsillectomy and adenoidectomy Hx of tonsillectomy LEFT ARM SURGERY "PINCHED NERVE FIXED" Family History: Family History (Updated 12/26/17 @ 18:04 by Cristal Mohan) Father , 76 Kidney failure Cancer prostate, leukemia Diabetes Diabetic neuropathy Mother Hypoglycemia Hypertension Social History: Patient Lives/Resources With Spouse Utilized Preferred Language Mauritanian Do you have any adventist or No cultural preference? Smoking Status Never smoker Have you smoked in the past 12 No months Do you dip or chew tobacco No Abuse History No History of abuse Psych History Hx of Anxiety,Hx of Depression Alcohol Use none Drug Use none (Last Updated 12/26/17 @ 18:02 by Cristal Mohan) No Social History Section defined Review Of Systems (GEN) - Review of Systems Generalized/Overall Review: Absent: Fever EENTM: Present: No Symptoms Reported Respiratory: Absent: Cough, Shortness of Breath Cardiac: Absent: Chest Pain, Edema Abdominal: Absent: Nausea Genitourinary: Present: No Symptoms Reported Musculoskeletal: Present: No Symptoms Reported Neurological: Present: Numbness, Other - difficulty speaking Immunizations: IMMUNIZATION HX Immunizations Up to Date Yes History of Influenza Vaccine More Information Required Hx Pneumococcal Vaccination More Information Required Allergies/Adverse Reactions: Allergies Allergy/AdvReac Type Severity Reaction Status Date / Time BRYON Inhibitors Allergy Severe Swelling Verified 10/31/18 17:19 of Throat pioglitazone HCl [From Actos] Allergy Severe Swelling Verified 10/31/18 17:19 of Throat Home Medications: HOME MEDICATIONS Atorvastatin Calcium 80 mg PO DAILY 07/02/17 [Last Taken Unknown] Clopidogrel Bisulfate [Plavix] 75 mg PO DAILY 07/02/17 [Last Taken Unknown] Insulin Aspart [Novolog] 6 - 8 units SC AC 07/02/17 [Last Taken Unknown] Insulin Glargine,Hum.rec.anlog [Lantus] 40 units SC HS 07/02/17 [Last Taken Unknown] LORazepam [Ativan] 0.5 mg PO TID PRN 07/02/17 [Last Taken Unknown] Metoprolol Tartrate [Lopressor] 12.5 mg PO BID 07/02/17 [Last Taken Unknown] Multivitamin [One Daily Multivitamin] 1 ea PO DAILY 07/02/17 [Last Taken Unknown] Aspirin [Adult Aspirin] 81 mg PO DAILY 04/06/18 [Last Taken Unknown] FLUoxetine HCL [Fluoxetine HCl] 20 mg PO DAILY 04/06/18 [Last Taken Unknown] Folic Acid 1 mg PO DAILY 04/06/18 [Last Taken Unknown] Nitroglycerin [Nitrostat] 0.4 mg SL Q5MIN PRN 04/06/18 [Last Taken Unknown] Exam - Exam Vital Signs: Vital Signs - Last Taken Temp 36.5 C 10/31/18 16:40 Pulse 116 H 10/31/18 17:45 Resp 12 10/31/18 17:45 BP 151/89 H 10/31/18 17:45 Pulse Ox 99 10/31/18 16:40 Constitutional: Present: Alert, Oriented x3, Cooperative, Well developed, Well nourished, No distress Eye Exam: bilateral eye: EOMI Neck: Present: supple Respiratory: Present: chest non-tender, normal breath sounds Cardiovascular/Chest: Present: regular rate, rhythm Abdomen: Present: Normal bowel sounds, soft, nontender Extremity: Absent: lower extremity edema Neurologic: Present: other - 5/5 strength of elbow flexion, extension. Able to ambulate to the bathroom. Says "um" frequently, and does not answer several questions. Absent: facial droop Diagnostic Studies: Abnormal Lab Results 10/31/18 10/31/18 10/31/18 Range/Units 10:30 10:30 10:30 Plt Count 104 L (150-450) K/mm3 MPV 13.1 H (8-11.3) fl Lymphocytes # 1.49 L (1.5-3.5) k/mm3 PT 10.8 H (9.1-10.7) Seconds INR (Anticoag Therapy) 1.09 H (0.92-1.08) INR Plasma Sodium 143 H (130-142) mmol/L Random Glucose 334 H (70-110) mg/dL Total Bilirubin 1.2 H (0.0-1.1) mg/dL Laboratory Results WBC 6.8 K/mm3 (4.0-10.5) 10/31/18 10:30 RBC 5.54 M/mm3 (4.7-6.0) 10/31/18 10:30 Hgb 16.4 gm/dL (13.5-18.0) 10/31/18 10:30 Hct 47.7 % (42.0-52.0) 10/31/18 10:30 MCV 86.1 fl (78-100) 10/31/18 10:30 MCH 29.6 pg (27-31) 10/31/18 10:30 MCHC 34.4 g/dl (32-36) 10/31/18 10:30 RDW 12.8 % (11.5-14.0) 10/31/18 10:30 Plt Count 104 K/mm3 (150-450) L 10/31/18 10:30 MPV 13.1 fl (8-11.3) H 10/31/18 10:30 Immature Gran % (Auto) 0.30 % (0.001-0.429) 10/31/18 10:30 Immature Gran # (Auto) 0.02 K/mm3 (0.000-0.0310) 10/31/18 10:30 67.3 % (42-75.0) 10/31/18 10:30 22.0 % (20-51) 10/31/18 10:30 7.5 % (0.0-9) 10/31/18 10:30 2.2 % (0.0-3.0) 10/31/18 10:30 0.7 % (0.0-1.0) 10/31/18 10:30 Nucleated RBC % 0.0 k/mm3 (0-1) 10/31/18 10:30 4.6 K/mm3 (1.3-6.0) 10/31/18 10:30 1.49 k/mm3 (1.5-3.5) L 10/31/18 10:30 0.5 k/mm3 (0.0-1.0) 10/31/18 10:30 0.2 k/mm3 (0.0-0.7) 10/31/18 10:30 Absolute Basophils 0.1 k/mm3 (0.0-0.1) 10/31/18 10:30 ESR 10 mm/hr (0-10) 10/31/18 10:30 PT 10.8 Seconds (9.1-10.7) H 10/31/18 10:30 INR (Anticoag Therapy) 1.09 INR (0.92-1.08) H 10/31/18 10:30 PTT ([place]) 31.3 Seconds (24-32) D 10/31/18 10:30 Sodium 139 mmol/L (132-142) 10/31/18 10:30 143 mmol/L (130-142) H 10/31/18 10:30 Potassium 3.9 mmol/L (3.4-4.6) 10/31/18 10:30 Chloride 101 mmol/L (97-106) 10/31/18 10:30 Carbon Dioxide 32.0 mmol/L (24-32.6) 10/31/18 10:30 9.9 mmol/L (6.8-13.8) 10/31/18 10:30 BUN 17 mg/dL (6-23) 10/31/18 10:30 1.15 mg/dL (0.4-1.4) 10/31/18 10:30 Est GFR (Non-Af Amer) 68 mL/min (60-130) 10/31/18 10:30 14.8 (9.0-21.6) 10/31/18 10:30 334 mg/dL (70-110) H 10/31/18 10:30 Calcium 8.9 mg/dL (7.9-10.9) 10/31/18 10:30 Calcium Adj for Albumin 8.8 mg/dL (8.4-10.2) 10/31/18 10:30 1.2 mg/dL (0.0-1.1) H 10/31/18 10:30 AST 21 U/L (0-48) 10/31/18 10:30 ALT 32 U/L (19-67) 10/31/18 10:30 92 U/L (50-170) 10/31/18 10:30 6.6 gm/dL (6.2-8.2) 10/31/18 10:30 3.7 gm/dl (3.4-5.0) 10/31/18 10:30 Assessment/Plan - Assessment/Plan (1) CVA (cerebral vascular accident) Assessment: MRI reads: "2 small separate areas of potential acute/subacute infarcts in the subcortical white matter of the right insular cortex, and within the right centrum semiovale." Patient reports improvement in some of his symptoms, but is not able to articulate his symptoms fully. HIs numbness has resolved. Resume home meds and PT/OT, and follow up with neurology after DC. Problem: Acute (2) Alcohol abuse Assessment: He also reports recently stopping drinking significant amounts of alcohol. He did not report the amount of alcohol, however. Will monitor CIWA scores. He is prescribed 0.5 mg ativan tid at baseline. If he starts displaying signs of alcohol withdrawal, will increase that dose. Problem: Acute (3) Hypertension Assessment: The only home med that may be for blood pressure is metoprolol. Will allow permissive hypertension for the first 24 hours since he had a recent cerebrovascular infarct, and hold metoprolol. Problem: Chronic (4) GERD (gastroesophageal reflux disease) Problem: Suspected (5) Diabetes mellitus type 2 in nonobese Assessment: Continue home insulin - 40 U glargine and low dose SSI. Problem: Chronic (6) CHF (NYHA class I, ACC/AHA stage B) Assessment: He is not displaying signs of fluid overload currently, and denies symptoms. Problem: Acute (7) Anxiety disorder Problem: Chronic
[2018-10-31] MEDS ORDERED: INSULIN GLARGINE,HUM.REC.ANLOG 100 UNITS/ML VIAL SC SCH (21:00)
[2018-10-31] MEDS ORDERED: METOPROLOL TARTRATE 50 MG TABLET PO SCH (21:00)
[2018-10-31] MEDS ORDERED: ROSUVASTATIN CALCIUM 10 MG TABLET ONE (22:06)
[2018-11-01] MEDS: INSULIN ASPART 100 UNITS/ML VIAL SC SCH ×2 (07:27→11:18)
[2018-11-01] MEDS ORDERED: CLOPIDOGREL BISULFATE 75 MG TABLET PO SCH (09:00)
[2018-11-01] MEDS ORDERED: FOLIC ACID 1 MG TABLET PO SCH (09:00)
[2018-11-01] MEDS ORDERED: FLUoxetine HCL 20 MG CAPSULE PO SCH (09:00)
[2018-11-01] MEDS ORDERED: ASPIRIN 81 MG TABLET.DR PO SCH (09:00)
[2018-11-01] MEDS ORDERED: METOPROLOL TARTRATE 25 MG TABLET PO SCH (09:00)
--- NOTE | 2018-11-01 11:47 | DS ---
(1) CVA (cerebral vascular accident) Problem: Acute (2) Alcohol abuse Problem: Acute (3) Hypertension Problem: Chronic (4) GERD (gastroesophageal reflux disease) Problem: Suspected (5) Diabetes mellitus type 2 in nonobese Problem: Chronic (6) CHF (NYHA class I, ACC/AHA stage B) Problem: Acute (7) Anxiety disorder Problem: Chronic Description of Stay: Patient with recent CVA about a month ago developed numbness and difficulty speaking yesterday or today. In the ED, MRI showed two new areas of acute/subacute infarcts in the right insular cortex. He reports not taking his prescribed medications for several months. Of note, he is also going through a divorce. He declines other symptoms. He states he used to drink regularly, and stated "you don't want to know" when asked the amount he drank daily. He is unable to say exactly when he stopped drinking, but that it was sometime around a week ago. He uses smokeless tobacco. He has difficulty answering questions on exam, but reports his numbness has resolved. He was unable to tell me where the numbness was. The day after admission, he reported feeling "a lot" better. He was evaluated by PT, who recommends he use a cane at home, and he states he will pick one up on the way home. He did not have elevated CIWA scores. He was able to converse more easily on the day of DC. He reports having an appointment with his PCP in two days to get a new neurology referral. He'd prefer not to go to neurology at the [facility]. He also states he had a previous appt at the [facility] for what he describes as a heart cath. Recommend getting this rescheduled. He denies cardiac symptoms currently. Procedures Performed: none Results and Findings: Lab Pending Results 10/31/18 10:30: WBC 6.8, RBC 5.54, Hgb 16.4, Hct 47.7, MCV 86.1, MCH 29.6, MCHC 34.4, RDW 12.8, Plt Count 104 L, MPV 13.1 H, Immature Gran % (Auto) 0.30, Immature Gran # (Auto) 0.02, Neutrophils % 67.3, Lymphocytes % 22.0, Monocytes % 7.5, Eosinophils % 2.2, Basophils % 0.7, Nucleated RBC % 0.0, Neutrophils # 4.6, Lymphocytes # 1.49 L, Monocytes # 0.5, Eosinophils # 0.2, Absolute Basophils 0.1 10/31/18 10:30: ESR 10 10/31/18 10:30: PT 10.8 H, INR (Anticoag Therapy) 1.09 H, PTT ([place]) 31.3 D 10/31/18 10:30: Sodium 139, Plasma Sodium 143 H, Potassium 3.9, Chloride 101, Carbon Dioxide 32.0, Anion Gap 9.9, BUN 17, Creatinine 1.15, Est GFR (Non-Af Amer) 68, BUN/Creatinine Ratio 14.8, Random Glucose 334 H, Calcium 8.9, Calcium Adj for Albumin 8.8, Total Bilirubin 1.2 H, AST 21, ALT 32, Alkaline Phosphatase 92, Total Protein 6.6, Albumin 3.7 Discharge Location: Home Disposition: Home self-care Condition: Stable Discharge Activity: Activity as tolerated Discharge Diet: Consistent carbs Usp Therapy: Physicial Therapy Complete Home Medications List: Complete Home Medication List: Atorvastatin Calcium 80 mg PO DAILY 07/02/17 Clopidogrel Bisulfate [Plavix] 75 mg PO DAILY 07/02/17 Insulin Aspart [Novolog] 6 units SC AC 07/02/17 Insulin Glargine,Hum.rec.anlog [Lantus] 50 units SC QA 07/02/17 LORazepam [Ativan] 0.5 mg PO TID PRN 07/02/17 FLUoxetine HCL [Fluoxetine HCl] 20 mg PO DAILY 04/06/18 Folic Acid 1 mg PO DAILY 04/06/18 Nitroglycerin [Nitrostat] 0.4 mg SL Q5MIN PRN 04/06/18 Aspirin [Aspirin Enteric Coated] 81 mg PO DAILY tablet. 11/01/18 Furosemide 20 mg PO DAILY 11/01/18 Gabapentin 100 mg PO DAILY 11/01/18 Metoprolol Tartrate [Lopressor] 12.5 mg PO BID tablet 11/01/18 Metoprolol Tartrate [Lopressor] 25 mg PO BID 11/01/18 Potassium Chloride [Potassium Chloride 40 meq/15ml Liquid] 8 ml PO DAILY 11/01/18 Thiamine HCl [Vitamin B-1] 100 mg PO DAILY 11/01/18 clonazePAM [Klonopin] 1 mg PO HS 11/01/18
[2018-11-01 14:31] VITALS: BP 150/90
[2018-11-01] MEDS ORDERED: ROSUVASTATIN CALCIUM 20 MG TABLET PO SCH (21:00)
== END 2018-11-01 15:15 | disposition home or self-care (01) | DRG 66 ==
LOC: ER 10:10 → MS 16:10
PROVIDERS: ADMIT Family Medicine; ATTEND Family Medicine
CPT/HCPCS: 36415; 70450; 70551; 71010; 71045; 80053; 85025; 85610; 85652; 85730; 93005; 96374; 97162; 99285

== ENCOUNTER 2019-03-25 10:47 | Inpatient (IN) ==
[2019-03-25] MEDS ORDERED: INSULIN LISPRO 100 UNITS/ML VIAL SC ONE (11:20)
--- NOTE | 2019-03-25 11:27 | ERNOTE ---
Medical Problem HPI - Narrative Date of Service: 03/25/19 - General Chief Complaint: General Assessment Time Seen by Provider: 03/25/19 10:52 Source: patient Exam Limitations: no limitations - Immun/Allergies/Home Medications Immunizations: IMMUNIZATION HX Immunizations Up to Date Yes History of Influenza Vaccine Yes Hx Pneumococcal Vaccination More Information Required Allergies/Adverse Reactions: Allergies BRYON Inhibitors Allergy (Severe, Verified 03/25/19 15:50) Swelling of Throat pioglitazone HCl [From Actos] Allergy (Severe, Verified 03/25/19 15:50) Swelling of Throat Home Medications: HOME MEDICATIONS Atorvastatin Calcium 80 mg PO DAILY 07/02/17 [Last Taken Unknown] Clopidogrel Bisulfate [Plavix] 75 mg PO DAILY 07/02/17 [Last Taken Unknown] Insulin Aspart [Novolog] 6 units SC AC 07/02/17 [Last Taken Unknown] Insulin Glargine,Hum.rec.anlog [Lantus] 50 units SC QAM 07/02/17 [Last Taken Unknown] LORazepam [Ativan] 0.5 mg PO TID PRN 07/02/17 [Last Taken Unknown] FLUoxetine HCL [Fluoxetine HCl] 20 mg PO DAILY 04/06/18 [Last Taken Unknown] Folic Acid 1 mg PO DAILY 04/06/18 [Last Taken Unknown] Nitroglycerin [Nitrostat] 0.4 mg SL Q5MIN PRN 04/06/18 [Last Taken Unknown] Aspirin [Aspirin Enteric Coated] 81 mg PO DAILY tablet. 11/01/18 [Last Taken Unknown] Furosemide 20 mg PO DAILY 11/01/18 [Last Taken Unknown] Gabapentin 100 mg PO DAILY 11/01/18 [Last Taken Unknown] Metoprolol Tartrate [Lopressor] 25 mg PO BID 11/01/18 [Last Taken Unknown] Potassium Chloride [Potassium Chloride 40 meq/15ml Liquid] 8 ml PO DAILY 11/01/18 [Last Taken Unknown] Thiamine HCl [Vitamin B-1] 100 mg PO DAILY 11/01/18 [Last Taken Unknown] clonazePAM [Klonopin] 1 mg PO HS 11/01/18 [Last Taken Unknown] Apixaban [Eliquis] 5 mg PO DAILY 03/25/19 [Last Taken Unknown] - History of Present History Narrative: This patient is a 64-year-old male who arrived by ambulance with TIA versus CVA. He said that about an hour ago while watching TV, he lost control of his right arm. He also had some trouble speaking and trouble with his memory. He said the symptoms lasted for 20 minutes and now he is back to normal. He reports having a history of TIAs and strokes. He said that in October 2018, he spent 4 weeks at the [facility], 4 weeks and [place], and then 4 weeks at a skilled nursing. He indicates that he had a bur hole placed in his head. He was started on Eliquis 1 or 2 months ago because of a stroke and atrial fibrillation. He normally sees a doctor in [place]. He does not know his medications. His symptoms have resolved at this time. Review of Systems - Review of Systems Constitutional: Absent: fever EYE: Absent: blurred vision, double vision ENT: Absent: ear pain, nose congestion, nasal drainage, sore throat Respiratory: Absent: shortness of breath, cough Cardiology: Absent: chest pain, palpitations, syncope Gastrointestinal/Abdominal: Absent: nausea, vomiting, diarrhea, constipation, abdominal pain Genitourinary: Absent: frequency, pain, dysuria, hematuria Musculoskeletal: Absent: back pain, joint pain Skin: Absent: rash Neurological: Present: no symptoms reported. Absent: anxiety, depressed, headache Endocrine: Present: other - He is diabetic. He has not taken his insulin today. Hematologic/Lymphatic: Present: other - No other bleeding at this time. Psych: Absent: anxiety, depressed Medical History (Last Reviewed 03/25/19 @ 11:25 by Dion Adams MD) Anxiety Onset Date: Unknown CHF (congestive heart failure) CVA (cerebral vascular accident) Calculus of kidney Onset Date: 1984 around [id number] Cardiomegaly Onset Date: Unknown Combined hyperlipidemia associated with type 2 diabetes mellitus Diabetes Essential familial hyperlipidemia GERD (gastroesophageal reflux disease) Gout Onset Date: 1994 Hernia, inguinal Onset Date: 2008 right direct Hypertension Personal history of colonic polyps Onset Date: Unknown Prostadynia Prostate cancer Removed prostate TIA (transient ischemic attack) Surgical History: Surgical History (Last Reviewed 03/25/19 @ 11:25 by Dion Adams MD) History of colonoscopy Onset Date: 06/10/13 with biopsy- '[place]-right colon polyp, lt colon. '14 [place], [place]- tubulovillous adenoma.- 04/23/08, 1/29/14 History of esophagogastroduodenoscopy (EGD) Onset Date: 06/10/13 [place]-mild chronic gastritis, H.pylor negative. History of inguinal hernia repair Onset Date: 12/21/08 tinguely-rt modified bassini and soft mesh History of prostate biopsy Onset Date: 01/06/[address] Swenson History of tonsillectomy and adenoidectomy Hx of tonsillectomy LEFT ARM SURGERY "PINCHED NERVE FIXED" Family History: Family History (Last Reviewed 03/25/19 @ 15:50 by Aileen Khan, DANDY) Father , 76 Kidney failure Cancer prostate, leukemia Diabetes Diabetic neuropathy Mother Hypoglycemia Hypertension Social History: (Last Reviewed 03/25/19 @ 15:50 by Aileen Khan RN) Social History: Marital status: household members: spouse current occupational status: retired Service: No Tobacco: Smoking Status: Smoker, status unknown Smokeless tobacco user: chewing tobacco Alcohol: alcohol intake: former Alcohol type: beer alcohol intake frequency: 0-2 drinks per day Substance Use: substance use type: does not use Dietary Habits: caffeine: Yes Type: carbonated beverages Physical Exam - Physical Exam General Appearance: Present: wd/wn, alert, no apparent distress Head Exam: Present: normal inspection, no evidence of injury Eye Exam: Normal inspection: bilateral Ears, Nose, Throat: Present: normal ENT inspection, normal pharynx Neck: Present: normal inspection, supple, other - No carotid bruits.. Absent: lymphadenopathy (R), lymphadenopathy (L) Respiratory: Present: no respiratory distress, normal breath sounds, lungs clear Cardiovascular/Chest: Present: regular rate, rhythm, no murmur Gastrointestinal/Abdominal: Present: normal bowel sounds, nontender, nondistended, soft, no organomegaly Extremity Exam: Present: normal inspection, non-tender, normal range of motion Neurological Exam: Present: alert, oriented, normal mood/affect, no motor/sensory deficits, other - He has no drift of the upper or lower extremities. Sensation is intact to light touch. Skin Exam: Present: normal color, warm/dry Progress - Date and Time Seen: Date and Time: 03/25/19 12:57 [facility] Consult contacted. 03/25/19 14:17 I spoke with the patient's neurologist at [facility]. He says that she needs further work-up with an MRI. I am not able to order an MRI today. I spoke with Dr. Roldan, who agrees to admit the patient. - Results and Orders Patient's Lab Results:: I have reviewed the patient's lab results. Results and Orders: Laboratory Tests 03/25/19 03/25/19 03/25/19 11:27 11:27 11:27 WBC 6.0 RBC 5.36 Hgb 16.2 Hct 46.2 MCV 86.2 MCH 30.2 MCHC 35.1 RDW 12.7 Plt Count 112 L MPV 13.7 H Immature Gran % (Auto) 0.30 Immature Gran # (Auto) 0.02 Neutrophils % 64.5 Lymphocytes % 24.2 Monocytes % 8.0 Eosinophils % 2.2 Basophils % 0.8 Nucleated RBC % 0.0 Neutrophils # 3.9 Lymphocytes # 1.45 L Monocytes # 0.5 Eosinophils # 0.1 Absolute Basophils 0.1 PT 10.8 H INR (Anticoag Therapy) 1.09 H Sodium 136 Plasma Sodium 141 Potassium 3.7 Chloride 98 Carbon Dioxide 33.2 H Anion Gap 8.5 BUN 16 Creatinine 1.04 Est GFR (Non-Af Amer) 76 D BUN/Creatinine Ratio 15.4 Random Glucose 387 H Calcium 8.8 Calcium Adj for Albumin 8.6 Total Bilirubin 0.9 AST 16 ALT 21 Alkaline Phosphatase 93 Total Protein 6.6 Albumin 3.8 - Vital Signs Patient's Vital Signs:: I have reviewed the patient's vital signs. Vital Signs: Vital Signs 03/25/19 10:53 Temperature 37 C Pulse Rate 81 Respiratory Rate 12 Blood Pressure 148/93 H O2 Sat by Pulse Oximetry 98 - EKG EKG #1 EKG read: Interp. by me EKG Comments: Atrial fibrillation. Rate 74 Left axis deviation Left bundle branch block No acute appearing ST or T wave changes. No old to compare. - CT/Ultrasound CT/Ultrasound Narrative: NENHANCED CT SCAN OF THE BRAIN Comparison: 11/01/2018 Technique: Multiple axial images were obtained through the brain without the use of IV contrast. Individualized dose optimization technique was used for the performed procedure including automated exposure control, adjustment of the mA and/or kV according to patient size and/or the iterative reconstruction technique. Findings: The lateral ventricles and sulci are symmetric and within normal limi ts for the patient's age. I do not see evidence for acute blood, extra-axial collection, or mass effect. There is a small chronic lacunar infarct within the lateral right basal ganglia, unchanged. I do not see evidence for chronic cortical or definable acute cortical infarct. The 3rd and 4th ventricles are midline and are of normal size. There is some streak artifact in the posterior fossa, but the cerebellum and visualized almas appear normal. The frontal, ethmoid, sphenoid, and visualized maxillary sinuses are clear.. The mastoid air cells and middle ears appear to be normally aerated. Bone windows demonstrate no evidence for fracture. I do not see evidence for significant soft tissue swelling overlying the calvarium. There is a celso hole within the right frontal bone, which is new compared to the previous study. IMPRESSION: 1. NO ACUTE INTRACRANIAL PROCESS. 2. CELSO HOLE WITHIN THE RIGHT FRONTAL BONE, WHICH APPEARS NEW WHEN COMPARED TO THE PREVIOUS STUDY. Electronically signed by Dimitris Gonzalez M.D.. - Progress/Reassessment Chief Complaint: General Assessment Departure Clinical Impression: TIA (transient ischemic attack), Diabetes mellitus type 2 in nonobese, A-fib, Wernicke encephalopathy - Departure Disposition: Still a patient Condition: Stable
[2019-03-25 11:29] LABS: Hematocrit 46.2 % (42.0-52.0); Hemoglobin 16.2 gm/dL (13.5-18.0); Mean Cell Volume 86.2 fl (78-100); Mean Corpuscular Hemoglobin 30.2 pg (27-31); Mean Corpuscular Hgb Conc 35.1 g/dl (32-36); Mean Platelet Volume 13.7 fl (8-11.3); Neutrophil # 3.9 K/mm3 (1.3-6.0); Neutrophil % 64.5 % (42-75.0); Platelet Count 112 K/mm3 (150-450); Red Blood Count 5.36 M/mm3 (4.7-6.0); Red Cell Distribution Width 12.7 % (11.5-14.0)
[2019-03-25] MEDS ORDERED: NON-FORMULARY 1 DOSE DOSE SC SCH (11:30)
[2019-03-25] MEDS ORDERED: INSULIN GLARGINE,HUM.REC.ANLOG 100 UNITS/ML VIAL SC ONE (11:45)
[2019-03-25 11:47] LABS: Prothrombin Time (Patient) 10.8 Seconds (9.1-10.7)
[2019-03-25 11:50] LABS: INR 1.09 INR (0.92-1.08)
[2019-03-25 11:52] LABS: Albumin * 3.8 gm/dl (3.4-5.0); Anion Gap 8.5 mmol/L (6.8-13.8); BUN/Creatinine Ratio 15.4 (9.0-21.6); Bilirubin, Total 0.9 mg/dL (0.0-1.1); Ca. Corrected For Albumin 8.6 mg/dL (8.4-10.2); Calcium * 8.8 mg/dL (7.9-10.9); Carbon Dioxide 33.2 mmol/L (24-32.6); Potassium 3.7 mmol/L (3.4-4.6); Total Protein 6.6 gm/dL (6.2-8.2)
[2019-03-25] MEDS ORDERED: MIDAZOLAM HCL/PF 5 MG/ML VIAL IV ONE (14:36)
--- NOTE | 2019-03-25 17:40 | HP ---
Chief Complaint - Chief Complaint Date of Service: 03/25/19 Time of Service: 17:12 Chief Complaint: TIA versus CVA History of Present Illness: 64-year-old male past medical history of alcohol abuse, Wernicke's encephalopathy, insulin-dependent diabetes mellitus type 2 and ischemic strokes in September and October 2018, presents to [facility] ER with concerns of TIA versus CVA at 11 AM. Last ischemic strokes were treated at [facility]. On his admission at [facility], NIHSS was 6. Patient did not receive TPA or mechanical thrombectomy. Extensive work-up was complete, which was largely unremarkable. During his hospitalization, it was discovered patient had Atrial fibrillation and started on Eliquis 5mg PO QD and Aspirin 81 mg PO QD and Keppra for seizure prophylaxis. Patient was discharged to acute rehab before being discharged home. Patient recovered without any residual deficits. Today patient was brought in with concerns of right arm and left leg weakness at approximately 10 AM, associated with slurring of speech. EMS was contacted, however by arrival to the ER at 11 AM symptoms are resolved with exception of minimal slurring of speech. Complete work-up completed and labs were largely unremarkable. Signs stable. Blood pressure ranging from systolic 148-162 and diastolic 90/93. PT/INR was 10.8/1.09. CT head completed ruled out any acute bleed. Followed up by an MRI of the brain, which was consistent with new changes of 2 impulse with a small focal areas in the white matter of the right and left parietal lobes suggesting small acute lacunar infarcts, which may reflect embolic etiology. MRI also revealed old small chronic lacunar infarct in the right lateral basal ganglia and 2 small chronic lacunar infarct in the posterior right cerebellum. Remaining image reve aled age-related atrophy with mild to moderate ischemic small vessel disease. In comparison to the notes from [facility] from his last admissions these are new changes. On arrival to the floor patient was examined. It is alert and oriented x3. Plate neurological examination was completed and was largely unremarkable with exception of pinpoint pupils which are reactive to light and accommodation. Consulted Dr. Britton of [facility] in regards to the new findings on MRI. Recommended since he is already on anticoagulation, symptoms have resolved and he is stable there probably would be no further intervention. However he did suggest to forwarding MRI of Brain to on Neurologist at [facility], since they previously treated him and they could evaluate his MRI and discuss course of treatment. Appreciate recommendations. Radiology department of [facility] was contacted and asked to send imaging to [facility]. Currently awaiting to discuss case with neurologist on-call for further management and higher level of care. Medical History (Last Reviewed 03/25/19 @ 15:50 by Aileen Khan RN) Anxiety Onset Date: Unknown CHF (congestive heart failure) CVA (cerebral vascular accident) Calculus of kidney Onset Date: 1984 around [id number] Cardiomegaly Onset Date: Unknown Combined hyperlipidemia associated with type 2 diabetes mellitus Diabetes Essential familial hyperlipidemia GERD (gastroesophageal reflux disease) Gout Onset Date: 1994 Hernia, inguinal Onset Date: 2008 right direct Hypertension Personal history of colonic polyps Onset Date: Unknown Prostadynia Prostate cancer Removed prostate TIA (transient ischemic attack) Surgical History: Surgical History (Last Reviewed 03/25/19 @ 15:50 by Aileen Khan RN) History of colonoscopy Onset Date: 06/10/13 with biopsy- -right colon polyp, lt colon. ' [place], [place]- tubulovillous adenoma.- 04/23/08, 06/10/13 History of esophagogastroduodenoscopy (EGD) Onset Date: 06/10/13 [place]-mild chronic gastritis, H.pylor negative. History of inguinal hernia repair Onset Date: 12/21/08 [place]ingu[place]-rt modified bassini and soft mesh History of prostate biopsy Onset Date: 01/06/[address] Swenson History of tonsillectomy and adenoidectomy Hx of tonsillectomy LEFT ARM SURGERY "PINCHED NERVE FIXED" Family History: Family History (Last Reviewed 03/25/19 @ 15:50 by Aileen Khan RN) Father , 76 Kidney failure Cancer prostate, leukemia Diabetes Diabetic neuropathy Mother Hypoglycemia Hypertension Social History: (Last Reviewed 03/25/19 @ 15:50 by Aileen Khan RN) Social History: Marital status: household members: spouse current occupational status: retired Service: No Tobacco: Smoking Status: Smoker, status unknown Smokeless tobacco user: chewing tobacco Alcohol: alcohol intake: former Alcohol type: beer alcohol intake frequency: 0-2 drinks per day Substance Use: substance use type: does not use Dietary Habits: caffeine: Yes Type: carbonated beverages Review Of Systems (GEN) - Review of Systems Generalized/Overall Review: Present: Weakness - Right arm weakness and left lower extremity weakness EENTM: Absent: Blurred Vision Respiratory: Absent: Shortness of Breath Cardiac: Absent: Chest Pain Musculoskeletal: Absent: Joint Pain, Joint Swelling Neurological: Absent: Numbness, Tremors, Weakness, Pre-existing Deficit Skin: Present: Dryness Immunizations: IMMUNIZATION HX Immunizations Up to Date Yes History of Influenza Vaccine Yes Hx Pneumococcal Vaccination More Information Required Allergies/Adverse Reactions: Allergies Allergy/AdvReac Type Severity Reaction Status Date / Time BRYON Inhibitors Allergy Severe Swelling Verified 03/25/19 15:50 of Throat pioglitazone HCl [From Actos] Allergy Severe Swelling Verified 03/25/19 15:50 of Throat Home Medications: HOME MEDICATIONS Atorvastatin Calcium 80 mg PO DAILY 07/02/17 [Last Taken Unknown] Clopidogrel Bisulfate [Plavix] 75 mg PO DAILY 07/02/17 [Last Taken Unknown] Insulin Aspart [Novolog] 6 units SC AC 07/02/17 [Last Taken Unknown] Insulin Glargine,Hum.rec.anlog [Lantus] 50 units SC QAM 07/02/17 [Last Taken Unknown] LORazepam [Ativan] 0.5 mg PO TID PRN 07/02/17 [Last Taken Unknown] FLUoxetine HCL [Fluoxetine HCl] 20 mg PO DAILY 04/06/18 [Last Taken Unknown] Folic Acid 1 mg PO DAILY 04/06/18 [Last Taken Unknown] Nitroglycerin [Nitrostat] 0.4 mg SL Q5MIN PRN 04/06/18 [Last Taken Unknown] Aspirin [Aspirin Enteric Coated] 81 mg PO DAILY tablet. 11/01/18 [Last Taken Unknown] Furosemide 20 mg PO DAILY 11/01/18 [Last Taken Unknown] Gabapentin 100 mg PO DAILY 11/01/18 [Last Taken Unknown] Metoprolol Tartrate [Lopressor] 25 mg PO BID 11/01/18 [Last Taken Unknown] Potassium Chloride [Potassium Chloride 40 meq/15ml Liquid] 8 ml PO DAILY 11/01/18 [Last Taken Unknown] Thiamine HCl [Vitamin B-1] 100 mg PO DAILY 11/01/18 [Last Taken Unknown] clonazePAM [Klonopin] 1 mg PO HS 11/01/18 [Last Taken Unknown] Apixaban [Eliquis] 5 mg PO DAILY 03/25/19 [Last Taken Unknown] Exam - Exam Vital Signs: Vital Signs - Last Taken Temp 36.4 C 03/25/19 15:50 Pulse 82 03/25/19 15:50 Resp 20 03/25/19 15:50 BP 160/90 H 03/25/19 15:50 Pulse Ox 96 03/25/19 15:50 Constitutional: Present: Alert, Oriented x3, Cooperative, Well developed, Well nourished, No distress ENT Exam: Present: hearing grossly normal Eye Exam: bilateral eye: normal inspection, PERRL, EOMI, other - Bilateral pinpoint pupils however pupils equal and round and reactive to light and accommodation Neck: Present: non-tender, full range of motion Respiratory: Present: lungs clear, normal breath sounds, no respiratory distress Cardiovascular/Chest: Present: normal peripheral pulses, regular rate, rhythm, no chest tenderness, no edema Abdomen: Present: Normal bowel sounds, soft, nontender Extremity: Present: normal range of motion, non-tender, normal inspection, no pedal edema, no calf tenderness, normal capillary refill Skin Exam: Present: normal color, warm/dry Neurologic: Present: tenter frame operator II-XII nml as tested, no motor/sensory deficits, alert, normal mood/affect, oriented x 3. Absent: aphasia, motor weakness, dizzy/light- headedness Appearance: Present: appropriate appearance Eye contact: Present: cooperative, good eye contact Thoughts: Present: normal thought pattern Diagnostic Studies: Abnormal Lab Results 03/25/19 03/25/19 03/25/19 Range/Units 11:27 11:27 11:27 Plt Count 112 L (150-450) K/mm3 MPV 13.7 H (8-11.3) fl Lymphocytes # 1.45 L (1.5-3.5) k/mm3 PT 10.8 H (9.1-10.7) Seconds INR (Anticoag Therapy) 1.09 H (0.92-1.08) INR Carbon Dioxide 33.2 H (24-32.6) mmol/L Random Glucose 387 H (70-110) mg/dL Laboratory Results WBC 6.0 K/mm3 (4.0-10.5) 03/25/19 11:27 RBC 5.36 M/mm3 (4.7-6.0) 03/25/19 11:27 Hgb 16.2 gm/dL (13.5-18.0) 03/25/19 11:27 Hct 46.2 % (42.0-52.0) 03/25/19 11:27 MCV 86.2 fl (78-100) 03/25/19 11:27 MCH 30.2 pg (27-31) 03/25/19 11:27 MCHC 35.1 g/dl (32-36) 03/25/19 11:27 RDW 12.7 % (11.5-14.0) 03/25/19 11:27 Plt Count 112 K/mm3 (150-450) L 03/25/19 11:27 MPV 13.7 fl (8-11.3) H 03/25/19 11:27 Immature Gran % (Auto) 0.30 % (0.001-0.429) 03/25/19 11:27 Immature Gran # (Auto) 0.02 K/mm3 (0.000-0.0310) 03/25/19 11:27 Neutrophils % 64.5 % (42-75.0) 03/25/19 11:27 Lymphocytes % 24.2 % (20-51) 03/25/19 11:27 Monocytes % 8.0 % (0.0-9) 03/25/19 11:27 Eosinophils % 2.2 % (0.0-3.0) 03/25/19 11:27 Basophils % 0.8 % (0.0-1.0) 03/25/19 11:27 Nucleated RBC % 0.0 k/mm3 (0-1) 03/25/19 11:27 Neutrophils # 3.9 K/mm3 (1.3-6.0) 03/25/19 11:27 Lymphocytes # 1.45 k/mm3 (1.5-3.5) L 03/25/19 11:27 Monocytes # 0.5 k/mm3 (0.0-1.0) 03/25/19 11:27 Eosinophils # 0.1 k/mm3 (0.0-0.7) 03/25/19 11:27 Absolute Basophils 0.1 k/mm3 (0.0-0.1) 03/25/19 11:27 PT 10.8 Seconds (9.1-10.7) H 03/25/19 11:27 INR (Anticoag Therapy) 1.09 INR (0.92-1.08) H 03/25/19 11:27 Sodium 136 mmol/L (132-142) 03/25/19 11:27 Plasma Sodium 141 mmol/L (130-142) 03/25/19 11:27 Potassium 3.7 mmol/L (3.4-4.6) 03/25/19 11:27 Chloride 98 mmol/L (97-106) 03/25/19 11:27 Carbon Dioxide 33.2 mmol/L (24-32.6) H 03/25/19 11:27 Anion Gap 8.5 mmol/L (6.8-13.8) 03/25/19 11:27 BUN 16 mg/dL (6-23) 03/25/19 11:27 Creatinine 1.04 mg/dL (0.4-1.4) 03/25/19 11:27 Est GFR (Non-Af Amer) 76 mL/min (60-130) D 03/25/19 11:27 BUN/Creatinine Ratio 15.4 (9.0-21.6) 03/25/19 11:27 Random Glucose 387 mg/dL (70-110) H 03/25/19 11:27 Calcium 8.8 mg/dL (7.9-10.9) 03/25/19 11:27 Calcium Adj for Albumin 8.6 mg/dL (8.4-10.2) 03/25/19 11:27 Total Bilirubin 0.9 mg/dL (0.0-1.1) 03/25/19 11:27 AST 16 U/L (0-48) 03/25/19 11:27 ALT 21 U/L (19-67) 03/25/19 11:27 Alkaline Phosphatase 93 U/L (50-170) 03/25/19 11:27 Total Protein 6.6 gm/dL (6.2-8.2) 03/25/19 11:27 Albumin 3.8 gm/dl (3.4-5.0) 03/25/19 11:27 Assessment/Plan - Narrative Narrative: Assessment/Plan 1. TIA (transient ischemic attack) - MRI consistent with acute ischemic changes, new in comparison to previous documented on discharge summary from [facility] in . Concern for embolic etiology. -Ultrasound of the carotids pending -Echo pending -Neurochecks every 4 hours -NIHSS 0 -We will repeat in a.m. -Continue cardiac monitoring -Repeat MRI versus CT of the head in a.m. -Awaiting to consult [facility] for further management -No concern for acute bleed. -We will continue Eliquis 5 mg and aspirin 81 mg -Continue Keppra for seizure prophylaxis 2 A-fib -Continue Eliquis -Continue cardiac monitoring 3. History of alcohol abuse, patient states he has not had alcohol since his stroke in October. - CIWA Score: 0, continue to monitor for symptoms -We will cancel banana bag -Ativan as needed for withdrawal symptoms, agitation or anxiety. Do not administer along with clonazepam. 4. Hypertension -Continue home medication of amlodipine 5 mg tablet daily -Vitals every 4 hours x 2 5. Hyperlipidemia -Due to history of ischemic stroke continue high-dose atorvastatin 6. Anxiety disorder -Renew home medication clonazepam 7. Dependent diabetes mellitus type 2 -Diabetic diet -Continue with home regimen of Lantus 20 units at bedtime, lispro 8 units before breakfast, 6 units before lunch, and 8 units before dinner. Fluids electrolyte nutrition: Currently n.p.o. once patient's passes bedside swallow test order heart healthy and consistent carb diet. Will administer a banana bag to prevent withdrawal symptoms DVT prophylaxis: Continue with Eliquis CODE STATUS: DO NOT RESUSCITATE Disposition: Images of MRI of the brain sent to [facility] for review, discussed case with Dr. Joselito MD neurologist on-call at [facility]. He recommended vessel imaging and echo to rule out etiology of emboli. This patient is stable, we can continue to monitor patient on the floor. Unless acute neurological changes occur overnight, no need to repeat imaging in the morning. Need to anticoagulate. - Assessment/Plan (1) TIA (transient ischemic attack) Problem: Acute (2) A-fib Problem: Acute (3) Alcohol abuse Problem: Acute (4) Hypertension Problem: Chronic (5) Hyperlipidemia Problem: Chronic (6) Anxiety disorder Problem: Chronic (7) Diabetes mellitus type 2 in nonobese Problem: Chronic
[2019-03-25] MEDS ORDERED: NITROGLYCERIN 0.4 MG/TAB BTL SL PRN (18:13)
[2019-03-25] MEDS ORDERED: LORazepam 0.5 MG TABLET PO PRN ×2 (18:13→18:29)
[2019-03-25] MEDS ORDERED: clonazePAM 0.5 MG TABLET PO PRN (18:28)
[2019-03-25] MEDS ORDERED: MULTIVIT INFUSN ADULT K IV SCH (18:30)
[2019-03-25] MEDS ORDERED: THIAMINE HCL IV SCH (18:30)
[2019-03-25] MEDS ORDERED: NORMAL SALINE IV SCH (18:30)
[2019-03-25] MEDS: INSULIN LISPRO 100 UNITS/ML VIAL SC SCH (20:11)
[2019-03-25] MEDS: METOPROLOL TARTRATE 25 MG TABLET PO SCH (20:14)
[2019-03-25] MEDS: APIXABAN 5 MG TABLET PO SCH (20:14)
[2019-03-25] MEDS: ASPIRIN 81 MG TABLET.DR PO SCH (20:15)
[2019-03-25] MEDS ORDERED: INSULIN GLARGINE,HUM.REC.ANLOG 100 UNITS/ML VIAL SC SCH (21:00)
[2019-03-25] MEDS ORDERED: clonazePAM 1 MG TABLET PO SCH (21:00)
[2019-03-26 06:47] LABS: Hematocrit 45.4 % (42.0-52.0); Hemoglobin 15.9 gm/dL (13.5-18.0); Mean Corpuscular Hemoglobin 30.1 pg (27-31); Red Blood Count 5.28 M/mm3 (4.7-6.0); White Blood Count 7.1 K/mm3 (4.0-10.5)
[2019-03-26 06:48] LABS: Neutrophil # 4.3 K/mm3 (1.3-6.0); Neutrophil % 60.9 % (42-75.0); Platelet Count 120 K/mm3 (150-450); Red Cell Distribution Width 12.7 % (11.5-14.0)
[2019-03-26 06:58] LABS: Albumin * 3.6 gm/dl (3.4-5.0); Anion Gap 7.4 mmol/L (6.8-13.8); BUN/Creatinine Ratio 17.2 (9.0-21.6); Bilirubin, Total 1.2 mg/dL (0.0-1.1); Ca. Corrected For Albumin 8.7 mg/dL (8.4-10.2); Calcium * 8.7 mg/dL (7.9-10.9); Potassium 3.4 mmol/L (3.4-4.6); Total Protein 6.1 gm/dL (6.2-8.2)
[2019-03-26] MEDS: INSULIN LISPRO 100 UNITS/ML VIAL SC SCH ×4 (07:41→12:07)
[2019-03-26] MEDS ORDERED: GABAPENTIN 100 MG CAPSULE PO SCH (09:00)
[2019-03-26] MEDS ORDERED: ROSUVASTATIN CALCIUM 20 MG TABLET PO SCH (09:00)
[2019-03-26] MEDS ORDERED: FOLIC ACID 1 MG TABLET PO SCH (09:00)
[2019-03-26] MEDS ORDERED: POTASSIUM CHLORIDE 40 MEQ/15 ML LIQUID PO SCH (09:00)
[2019-03-26] MEDS ORDERED: FLUoxetine HCL 20 MG CAPSULE PO SCH (09:00)
[2019-03-26] MEDS ORDERED: FUROSEMIDE 20 MG TABLET PO SCH (09:00)
[2019-03-26] MEDS ORDERED: THIAMINE HCL 100 MG TABLET PO SCH (09:00)
--- NOTE | 2019-03-26 09:24 | DS ---
(1) TIA (transient ischemic attack) Problem: Acute (2) A-fib Problem: Acute (3) Alcohol abuse Problem: Acute (4) Hypertension Problem: Chronic Qualifiers: Hypertension type: essential hypertension Qualified Code(s): I10 - Essential (primary) hypertension (5) Hyperlipidemia Problem: Chronic Qualifiers: Hyperlipidemia type: unspecified Qualified Code(s): E78.5 - Hyperlipidemia, unspecified (6) Anxiety disorder Problem: Chronic Qualifiers: Anxiety disorder type: generalized anxiety disorder Qualified Code(s): F41.1 - Generalized anxiety disorder (7) Diabetes mellitus type 2 in nonobese Problem: Chronic Date of Discharge:: 03/26/19 Description of Stay: 64-year-old male with past medical history of alcohol abuse, Wernicke's encephalopathy, insulin-dependent diabetes mellitus type 2 and ischemic strokes in September and October 2018, was admitted to [facility] on March 25, 2019 for TIA. Last ischemic strokes were treated at [facility]. Medical records from [facility] were reviewed in detail. On his admission at [facility] [place], NIHSS was 6. Patient did not receive TPA or mechanical thrombectomy. Extensive work-up was completed, which was largely unremarkable. During his hospitalization, it was discovered patient had Atrial fibrillation and started on Eliquis 5mg PO QD, Aspirin 81 mg PO QD and Keppra for seizure prophylaxis. On this admission, patient was brought in with concerns of right arm and right leg weakness which started approximately 10 AM, associated with slurring of speech. EMS was contacted, however by arrival to the ER at 11 AM symptoms were resolved with exception of minimal slurring of speech. Complete work-up completed and labs were largely unremarkable. Vital signs stable. CT head completed ruled out any acute bleed. Followed up by an MRI of the brain, which was consistent with new changes of 2 -3 small focal areas in the white matter of the right and left parietal lobes suggesting small acute lacunar infarcts, which may reflect embolic etiology. In comparison to the notes from [facility] from his last admissions these are new changes. MRI also revealed old small chronic lacunar infarct in the right lateral basal ganglia and 2 small chronic lacunar infarct in the posterior right cerebellum. Remaining image revealed age-related atrophy with mild to moderate ischemic small vessel disease. Consulted Dr. Tobi MD (neurologist) of [facility] in regards to the new findings on MRI. Recommended since he is already anticoagulated, symptoms have resolved and stable there probably would be no further intervention. However he did suggest to forward MRI of Brain to the bakery worker conveyor line neurologist at [facility], they can evaluate his MRI and discuss course of treatment. Radiology department of [facility] was contacted and asked to send imaging to [facility]. Discussed case with the neurologist on-call, Dr. Yee. Discussed new findings on MRI. Recommendations were evaluation of carotids and echo to rule out emboli. Otherwise he recommended imaging is not necessary the following morning if there are no acute neurological changes. Spoke to patient this morning regards to his MRI findings and discussion with the neurologist on-call, patient states that he has an appointment with [facility] in April 2019. Patient states he is compliant with his medication. Advised patient I will most likely discharge him today once imaging has been completed. Will schedule follow-up appointment primary care provider prior to discharge. No adjustment to current medications. Procedures Performed: none Results and Findings: Lab Pending Results 03/25/19 11:27: WBC 6.0, RBC 5.36, Hgb 16.2, Hct 46.2, MCV 86.2, MCH 30.2, MCHC 35.1, RDW 12.7, Plt Count 112 L, MPV 13.7 H, Immature Gran % (Auto) 0.30, Immature Gran # (Auto) 0.02, Neutrophils % 64.5, Lymphocytes % 24.2, Monocytes % 8.0, Eosinophils % 2.2, Basophils % 0.8, Nucleated RBC % 0.0, Neutrophils # 3.9, Lymphocytes # 1.45 L, Monocytes # 0.5, Eosinophils # 0.1, Absolute Basophils 0.1 03/25/19 11:27: PT 10.8 H, INR (Anticoag Therapy) 1.09 H 03/25/19 11:27: Sodium 136, Plasma Sodium 141, Potassium 3.7, Chloride 98, Carbon Dioxide 33.2 H, Anion Gap 8.5, BUN 16, Creatinine 1.04, Est GFR (Non-Af Amer) 76 D, BUN/Creatinine Ratio 15.4, Random Glucose 387 H, Calcium 8.8, Calcium Adj for Albumin 8.6, Total Bilirubin 0.9, AST 16, ALT 21, Alkaline Phosphatase 93, Total Protein 6.6, Albumin 3.8 03/26/19 06:38: WBC 7.1, RBC 5.28, Hgb 15.9, Hct 45.4, MCV 86.0, MCH 30.1, MCHC 35.0, RDW 12.7, Plt Count 120 L, MPV 14.0 H, Immature Gran % (Auto) 0.30, Immature Gran # (Auto) 0.02, Neutrophils % 60.9, Lymphocytes % 25.8, Monocytes % 9.0, Eosinophils % 3.2 H, Basophils % 0.8, Nucleated RBC % 0.0, Neutrophils # 4.3, Lymphocytes # 1.83, Monocytes # 0.6, Eosinophils # 0.2, Absolute Basophils 0.1 03/26/19 06:38: Sodium 139, Plasma Sodium 139, Potassium 3.4, Chloride 101, Carbon Dioxide 34.0 H, Anion Gap 7.4, BUN 15, Creatinine 0.87, Est GFR (Non-Af Amer) 94 D, BUN/Creatinine Ratio 17.2, Random Glucose 125 H D, Calcium 8.7, Calcium Adj for Albumin 8.7, Total Bilirubin 1.2 H, AST 18, ALT 19, Alkaline Phosphatase 83, Total Protein 6.1 L, Albumin 3.6 Discharge Location: Home Disposition: Home self-care Condition: Stable Discharge Activity: Activity as tolerated Discharge Diet: Consistent carbs, Low salt Complete Home Medications List: Complete Home Medication List: Atorvastatin Calcium 80 mg PO DAILY 07/02/17 Insulin Aspart [Novolog] 6 units SC AC 07/02/17 Insulin Glargine,Hum.rec.anlog [Lantus] 50 units SC QA 07/02/17 LORazepam [Ativan] 0.5 mg PO TID PRN 07/02/17 FLUoxetine HCL [Fluoxetine HCl] 20 mg PO DAILY 04/06/18 Folic Acid 1 mg PO DAILY 04/06/18 Nitroglycerin [Nitrostat] 0.4 mg SL Q5MIN PRN 04/06/18 Aspirin [Aspirin Enteric Coated] 81 mg PO DAILY tablet. 11/01/18 Furosemide 20 mg PO DAILY 11/01/18 Gabapentin 100 mg PO DAILY 11/01/18 Metoprolol Tartrate [Lopressor] 25 mg PO BID 11/01/18 Potassium Chloride [Potassium Chloride 40 meq/15ml Liquid] 8 ml PO DAILY 11/01/18 Thiamine HCl [Vitamin B-1] 100 mg PO DAILY 11/01/18 clonazePAM [Klonopin] 1 mg PO HS 11/01/18 Apixaban [Eliquis] 5 mg PO DAILY 03/25/19
[2019-03-26] MEDS: METOPROLOL TARTRATE 25 MG TABLET PO SCH (10:10)
[2019-03-26] MEDS: ASPIRIN 81 MG TABLET.DR PO SCH (10:10)
[2019-03-26] MEDS: APIXABAN 5 MG TABLET PO SCH (10:10)
--- NOTE | 2019-03-26 12:54 | DS ---
Transfer Discharge Summary - Diagnosis(s)/Problems (1) CVA (cerebral vascular accident) Problem: Acute (2) A-fib Problem: Acute (3) Alcohol abuse Problem: Acute (4) Hypertension Problem: Chronic (5) Hyperlipidemia Problem: Chronic (6) Anxiety disorder Problem: Chronic (7) Diabetes mellitus type 2 in nonobese Problem: Chronic - Course Description of Stay: 64-year-old male with past medical history ischemic strokes in September and October 2018, history of alcohol abuse, Wernicke's encephalopathy, insulin- dependent diabetes mellitus type 2 and , was admitted to [facility] on March 25, 2019 for CVA Last ischemic strokes were managed at [facility]. Medical records from [facility] were reviewed in detail. On his admission at [facility], NIHSS was 6. Patient did not receive TPA or mechanical thrombectomy. Extensive work-up was completed, which was largely unremarkable. During his hospitalization, it was discovered patient had Atrial fibrillation and started on Eliquis 5mg PO QD, Aspirin 81 mg PO QD, Keppra, & Metoprolol 25 mg PO BID. On this admission, patient was brought in on March 25, 2019 with concerns of right arm and right leg weakness which started approximately at 10 AM, associated with slurring of speech. Patient brought in by EMS, however by arrival to the [facility] ER at 11 AM, right upper and lower extremity weakness symptoms had resolved with minimal slurring of speech, however he was coherent and A0X3. Complete work-up completed and labs were largely unremarkable. Vital signs stable. CT head completed ruled out acute hemorrhagic stroke, followed up by an MRI of the brain, which was consistent with new changes of 2 -3 small focal areas in the white matter of the right and left parietal lobes suggesting small acute lacunar infarcts, which may reflect embolic etiology. In comparison to the notes from [facility] from his last admissions these are new changes. MRI also revealed old small chronic lacunar infarct in the right lateral basal ganglia and 2 small chronic lacunar infarct in the posterior right cerebellum. Remaining image revealed age-related atrophy with mild to moderate ischemic small vessel disease. Consulted Dr. Tobi MD (neurologist) of [facility] in regards to the new findings on MRI. He explained since patient is already anticoagulated, symptoms have resolved and he is medically stable, there probably would be no further intervention except for overnight [id number]. However he did recommend to forward imaging to the salesforce consultant neurologist at [facility], for further evaluation of the MRI and discuss management. The Radiology department of [facility] sent imaging to [facility]. Case was discussed with the neurologist on-call, Dr. Joselito MD. I discussed new findings on MRI. Recommendations were evaluation of carotids and echo to rule out emboli. Otherwise he recommended imaging is not necessary the following morning if there are no acute neurological changes. Patient evaluated this morning, he was alert and oriented x3. Neurological examination was unremarkable. Will retain ultrasound of the carotids and echo with bubble study before discharge to home, however around noon patient had sudden neurological changes concerning for expressive aphasia, dysarthria and disoriented x3. Neurological examination completed, NIHSS 6. Stat stat work-up for acute CVA ordered, (Repeat CT Brain without contrast, US of Carotids, Echo, Cardiac workup), no checks every 2 hours, vitals every 2 hours, along with stroke scale evaluation. continuous telemetry, EKG consistent with Atrial Fibrillation, rate controlled. Currently awaiting results. Medication has been optimized. Discussed case with Dr Ramy Obregon MD (Hospitalist), and he has reviewed the case and has accepted patient for transfer to [facility] for higher level of care. Dr Britton on board. All imaging and medical records will be forwarded to [facility]. Consultation Done:: Dr. Britton (Neurology), Dr. Ramy Obregon (Hospitalist) Procedures Performed: none - Results and Findings Results and Findings: Laboratory Results - last 24 hr 03/26/19 03/26/19 06:38 06:38 WBC 7.1 RBC 5.28 Hgb 15.9 Hct 45.4 MCV 86.0 MCH 30.1 MCHC 35.0 RDW 12.7 Plt Count 120 L MPV 14.0 H Immature Gran % (Auto) 0.30 Immature Gran # (Auto) 0.02 Neutrophils % 60.9 Lymphocytes % 25.8 Monocytes % 9.0 Eosinophils % 3.2 H Basophils % 0.8 Nucleated RBC % 0.0 Neutrophils # 4.3 Lymphocytes # 1.83 Monocytes # 0.6 Eosinophils # 0.2 Absolute Basophils 0.1 Sodium 139 Plasma Sodium 139 Potassium 3.4 Chloride 101 Carbon Dioxide 34.0 H Anion Gap 7.4 BUN 15 Creatinine 0.87 Est GFR (Non-Af Amer) 94 D BUN/Creatinine Ratio 17.2 Random Glucose 125 H D Calcium 8.7 Calcium Adj for Albumin 8.7 Total Bilirubin 1.2 H AST 18 ALT 19 Alkaline Phosphatase 83 Total Protein 6.1 L Albumin 3.6 - Medications Medications: Active Medications Apixaban (Eliquis) 5 mg PO DAILY [facility] Stop: 04/24/19 18:16 Last Admin: 03/26/19 10:10 Dose: 5 mg Documented by: Aspirin (Aspirin Enteric Coated) 81 mg PO DAILY [facility] Stop: 04/24/19 18:16 Last Admin: 03/26/19 10:10 Dose: 81 mg Documented by: Fluoxetine HCl (Prozac) 20 mg PO DAILY [facility] Stop: 04/25/19 09:01 Last Admin: 03/26/19 10:11 Dose: 20 mg Documented by: Folic Acid (Folic Acid) 1 mg PO DAILY [facility] Stop: 04/25/19 09:01 Last Admin: 03/26/19 10:15 Dose: 1 mg Documented by: Furosemide (Lasix) 20 mg PO DAILY [facility] Stop: 04/25/19 09:01 Last Admin: 03/26/19 10:10 Dose: 20 mg Documented by: Gabapentin (Neurontin) 100 mg PO DAILY [facility] Stop: 04/25/19 09:01 Last Admin: 03/26/19 10:11 Dose: 100 mg Documented by: Insulin Glargine (Lantus) 20 units SC HS [facility] Stop: 04/24/19 21:01 Last Admin: 03/25/19 20:13 Dose: 20 units Documented by: Insulin Human Lispro (Humalog) 6 units SC AC [facility] Stop: 04/25/19 07:01 Last Admin: 03/26/19 12:07 Dose: 6 units Documented by: Insulin Human Lispro (Humalog) 0 units SC ACHSINS [facility]; Protocol Stop: 04/24/19 21:01 Last Admin: 03/26/19 12:07 Dose: Not Given Documented by: Metoprolol Tartrate (Lopressor) 25 mg PO BID [facility] Stop: 04/24/19 21:01 Last Admin: 03/26/19 10:10 Dose: 25 mg Documented by: Potassium Chloride (Potassium Chloride 40 Meq/15ml Liquid) 21.3333 meq PO DAILY [facility] Stop: 04/25/19 09:01 Last Admin: 03/26/19 10:11 Dose: 21.3333 meq Documented by: Rosuvastatin Calcium (Crestor) 40 mg PO DAILY [facility] Stop: 04/25/19 09:01 Last Admin: 03/26/19 10:10 Dose: 40 mg Documented by: Thiamine HCl (Vitamin B-1) 100 mg PO DAILY [facility] Stop: 04/25/19 09:01 Last Admin: 03/26/19 10:11 Dose: 100 mg Documented by: Discontinued Medications Insulin Human Lispro (Humalog) 6 units SC ONCE ONE Stop: 03/25/19 11:21 Last Admin: 03/25/19 11:27 Dose: 6 units Documented by: Midazolam HCl (Versed) 3 mg IV ONCE ONE Stop: 03/25/19 14:37 Last Admin: 03/25/19 14:49 Dose: 3 mg Documented by: - Disposition Disposition: Short Term Hospital Inpatient Condition: Stable Discharge Date: 03/26/19 Discharge Time: 15:57
[2019-03-26 13:45] LABS: Troponin I 0.027 ng/mL (0.00-0.10)
[2019-03-26 13:50] LABS: CKMB 2.3 ng/mL (0.0-9.0)
[2019-03-26 17:09] VITALS: BP 166/97
--- NOTE | 2019-03-27 11:03 | ECHO ---
This report is available in the EMR
== END 2019-03-26 17:04 | disposition short-term general hospital (02) | DRG 65 ==
LOC: ER 10:47 → MS 10:47
PROVIDERS: ADMIT Family Medicine; ATTEND Family Medicine
DX: E11.9 Type 2 diabetes mellitus without complications; I48.20 Chronic atrial fibrillation, unspecified; F10.10 Alcohol abuse, uncomplicated; F41.9 Anxiety disorder, unspecified; Z79.4 Long term (current) use of insulin; F17.220 Nicotine dependence, chewing tobacco, uncomplicated; Z79.01 Long term (current) use of anticoagulants; I63.81 Other cerebral infarction due to occlusion or stenosis of small artery; E78.2 Mixed hyperlipidemia; R41.0 Disorientation, unspecified; R47.01 Aphasia; I11.0 Hypertensive heart disease with heart failure; I69.322 Dysarthria following cerebral infarction; R29.706 NIHSS score 6
CPT/HCPCS: 36415; 70450; 70553; 80053; 82550; 82553; 84484; 85025; 85610; 93005; 93306; 93880; 96372; 96374; 99285; A9576